=== PATIENT | female | born 1970 | race Caucasian/White ===

== ENCOUNTER → 2016-05-16 | Outpatient (CLI) | payer OTHER ==
--- NOTE | 2016-05-16 11:05 | REPMRS ---
Patient History The patient states she had a clinical breast exam in 05/30 Patient has history of leukemia cancer at age 8. No known family history of cancer. Digital Woman Screen Mammo: May 16, 2016 - Exam #: [id number] Bilateral CC and MLO view(s) were taken. Technologist: Katelyn Carlos, Technologist Prior study comparison: January 30, 2012, digital woman screen mammo performed at [facility] to [facility]. January 26, 2011, bilateral bilat screen digital mammo performed at [facility]. FINDINGS: There are scattered fibroglandular densities. There has been no change in the appearance of the mammogram from the prior studies. There is a mild amount of residual fibroglandular tissue which is fairly symmetric. There is no interval development of dominant mass, architectural distortion, or clustered microcalcification suggestive of malignancy. ASSESSMENT: BI-RADS/ACR category 1 mammogram. Negative. Recommendation Routine screening mammogram in 1 year (for women over age 40). This mammogram was interpreted with the aid of an FDA-approved computer-aided dectection system. Electronically Signed By: Kb Chung MD 05/16/16 2347
== END ==
LOC: M WHC 10:12
PROVIDERS: ATTEND Nurse Practitioner Women's Health
DX: Z12.31 Encounter for screening mammogram for malignant neoplasm of breast (principal)

== ENCOUNTER → 2016-08-08 | Outpatient (CLI) | payer OTHER ==
[2016-08-08 11:35] LABS: ALBUMIN 3.6 GM/DL (3.2-5.2); ALBUMIN/GLOBULIN RATIO 0.95 (1.00-1.93); BILIRUBIN,TOTAL 0.3 MG/DL (0.2-1.0); CALCIUM LEVEL 8.8 MG/DL (8.5-10.1); CREATININE FOR GFR 1.08 MG/DL (0.55-1.02); GLOMERULAR FILTRATION RATE 58.4 (>58); POTASSIUM SERUM 4.7 MEQ/L (3.5-5.1); TOTAL PROTEIN 7.4 GM/DL (6.4-8.2)
[2016-08-08 11:45] LABS: BASO % 0.7 % (0.0-1.0); EOS # 0.1 K/mm3 (0.0-0.50); EOS % 4.2 % (0.0-3.0); LARGE UNSTAINED CELL # 0.1 K/mm3 (0.0-0.4); LARGE UNSTAINED CELL % 1.9 % (0.0-4.0); LYMPH # 1.1 K/mm3 (1.5-4.5); LYMPH % 32.6 % (24.0-44.0); MEAN CORPUSCULAR HEMOGLOBIN 29.1 pg (27.0-33.0); MEAN CORPUSCULAR HGB CONC 33.3 g/dl (32.0-36.5); MEAN CORPUSCULAR VOLUME 87.3 fl (80.0-96.0); MONO # 0.2 K/mm3 (0.0-0.8); MONO % 5.3 % (0.0-5.0); NEUTROPHILS # 1.9 K/mm3 (1.8-7.7); NEUTROPHILS % 55.3 % (36.0-66.0); PLATELET COUNT, AUTOMATED 192 k/mm3 (150-450); RED CELL DISTRIBUTION WIDTH 13.5 % (11.5-14.5); WHITE BLOOD COUNT 3.4 K/mm3 (4.0-10.0)
== END ==
LOC: M WUC 09:38
PROVIDERS: ATTEND Physician Assistant Medical
DX: E03.9 Hypothyroidism, unspecified (principal); R30.0 Dysuria; E66.01 Morbid (severe) obesity due to excess calories; E55.9 Vitamin D deficiency, unspecified; N18.3 Chronic kidney disease, stage 3 (moderate); E78.4 Other hyperlipidemia

== ENCOUNTER → 2016-08-10 | Outpatient (CLI) | payer OTHER ==
--- NOTE | 2016-08-10 14:34 | REP ---
AP LATERAL LEFT KNEE, TWO VIEWS: HISTORY: Pain. There is no acute fracture or dislocation. There is narrowing of the joint spaces with associated osteophyte formation. Calcifications are present superior to the patella and adjacent to the femoral condyles. This represents ligamentous or tendon calcification. IMPRESSION: Degenerative change as described above. Signed by Merrick Bai MD 08/10/2016 02:40 P
== END ==
LOC: M ADAMS 13:48
PROVIDERS: ATTEND Physician Assistant Medical
DX: M25.562 Pain in left knee (principal)

== ENCOUNTER → 2016-10-11 | Outpatient (CLI) | payer OTHER ==
[2016-10-11 18:34] LABS: FREE T4 1.27 NG/DL (0.76-1.46)
== END ==
LOC: M WUC 13:09
PROVIDERS: ATTEND Physician Assistant Medical
DX: E03.9 Hypothyroidism, unspecified (principal)

== ENCOUNTER → 2017-03-21 | Outpatient (CLI) | payer OTHER ==
[2017-03-21 13:07] LABS: BASO % 0.9 % (0.0-1.0); EOS # 0.2 10^3/uL (0.0-0.50); EOS % 5.3 % (0.0-3.0); IMMATURE GRANULOCYTE % 0.2 % (0-0); LYMPH # 1.5 10^3/uL (1.5-4.5); LYMPH % 33.6 % (24.0-44.0); MEAN CORPUSCULAR HGB CONC 32.3 g/dl (32.0-36.5); MEAN CORPUSCULAR VOLUME 89.9 fl (80.0-96.0); MONO # 0.3 10^3/uL (0.0-0.8); MONO % 5.6 % (0.0-5.0); NEUTROPHILS # 2.5 10^3/uL (1.8-7.7); NEUTROPHILS % 54.4 % (36.0-66.0); PLATELET COUNT, AUTOMATED 225 10^3/uL (150-450); RED CELL DISTRIBUTION WIDTH 13.4 % (11.5-14.5); WHITE BLOOD COUNT 4.5 10^3/uL (4.0-10.0)
[2017-03-21 13:28] LABS: ALBUMIN 3.7 GM/DL (3.2-5.2); BILIRUBIN,TOTAL 0.3 MG/DL (0.2-1.0); CALCIUM LEVEL 9.1 MG/DL (8.5-10.1); CREATININE FOR GFR 1.13 MG/DL (0.55-1.02); GLOMERULAR FILTRATION RATE 55.2 (>58); POTASSIUM SERUM 4.5 MEQ/L (3.5-5.1); TOTAL PROTEIN 7.4 GM/DL (6.4-8.2)
== END ==
LOC: M WUC 09:19
PROVIDERS: ATTEND Physician Assistant Medical
DX: E03.9 Hypothyroidism, unspecified (principal)

== ENCOUNTER → 2017-09-21 | Outpatient (REF) | payer OTHER ==
[2017-09-21 18:51] LABS: BASO # 0.1 10^3/uL (0.0-0.2); BASO % 1.3 % (0.0-1.0); EOS # 0.2 10^3/uL (0.0-0.50); EOS % 4.9 % (0.0-3.0); HEMATOCRIT 41.3 % (36.0-47.0); HEMOGLOBIN 13.6 g/dl (12.0-15.5); IMMATURE GRANULOCYTE % 0.4 % (0-3.0); LYMPH # 1.3 10^3/uL (1.5-4.5); LYMPH % 28.4 % (24.0-44.0); MEAN CORPUSCULAR HEMOGLOBIN 29.1 pg (27.0-33.0); MEAN CORPUSCULAR HGB CONC 32.9 g/dl (32.0-36.5); MEAN CORPUSCULAR VOLUME 88.4 fl (80.0-96.0); MONO # 0.3 10^3/uL (0.0-0.8); MONO % 5.5 % (0.0-5.0); NEUTROPHILS # 2.7 10^3/uL (1.8-7.7); NEUTROPHILS % 59.5 % (36.0-66.0); PLATELET COUNT, AUTOMATED 217 10^3/uL (150-450); RED BLOOD COUNT 4.67 10^6/uL (4.00-5.40); RED CELL DISTRIBUTION WIDTH 13.4 % (11.5-14.5); WHITE BLOOD COUNT 4.5 10^3/uL (4.0-10.0)
[2017-09-21 19:03] LABS: ESTIMATED AVERAGE GLUCOSE 108 MG/DL (60-110); HEMOGLOBIN A1c 5.4 %
[2017-09-21 19:04] LABS: TOTAL 25(OH) VITAMIN D 25.2 NG/ML (30.0-100.0)
[2017-09-21 19:19] LABS: ALBUMIN 4.3 GM/DL (3.2-5.2); ALBUMIN/GLOBULIN RATIO 1.16 (1.00-1.93); ALKALINE PHOSPHATASE 127 U/L (45-117); ALT/SGPT 27 U/L (12-78); ANION GAP 8 MEQ/L (8-16); AST/SGOT 21 U/L (7-37); BILIRUBIN,TOTAL 0.3 MG/DL (0.2-1.0); BLOOD UREA NITROGEN 16 MG/DL (7-18); CARBON DIOXIDE LEVEL 27 MEQ/L (21-32); CHLORIDE LEVEL 105 MEQ/L (98-107); CHOLESTEROL LEVEL 259 MG/DL (<200); CHOLESTEROL RISK RATIO 6.815 (<5); FREE T4 1.01 NG/DL (0.76-1.46); GLOMERULAR FILTRATION RATE 56.9 (>58); GLUCOSE, FASTING 78 MG/DL (70-100); HDL CHOLESTEROL 38 MG/DL (>40); LDL CHOLESTEROL 177.6 MG/DL (<100); NON-HDL-C 221 MG/DL; POTASSIUM SERUM 4.5 MEQ/L (3.5-5.1); SODIUM LEVEL 140 MEQ/L (136-145); TRIGLYCERIDES LEVEL 217 MG/DL (<150)
== END ==
LOC: M SFHCADAM 14:16
DX: N18.3 Chronic kidney disease, stage 3 (moderate) (principal); F32.9 Major depressive disorder, single episode, unspecified; E55.9 Vitamin D deficiency, unspecified; I12.9 Hypertensive chronic kidney disease with stage 1 through stage 4 chronic kidney disease, or unspecified chronic kidney disease
CPT/HCPCS: 84443

== ENCOUNTER → 2018-03-11 | Outpatient (REF) | payer OTHER ==
[2018-03-11 12:48] LABS: BASO % 0.8 % (0.0-1.0); EOS # 0.2 10^3/uL (0.0-0.50); EOS % 4.1 % (0.0-3.0); HEMATOCRIT 41.4 % (36.0-47.0); HEMOGLOBIN 13.4 g/dl (12.0-15.5); IMMATURE GRANULOCYTE % 0.4 % (0-3.0); LYMPH # 1.7 10^3/uL (1.5-4.5); MEAN CORPUSCULAR HGB CONC 32.4 g/dl (32.0-36.5); MEAN CORPUSCULAR VOLUME 89.6 fl (80.0-96.0); MONO # 0.3 10^3/uL (0.0-0.8); MONO % 5.4 % (0.0-5.0); NEUTROPHILS # 2.6 10^3/uL (1.8-7.7); NEUTROPHILS % 54.3 % (36.0-66.0); PLATELET COUNT, AUTOMATED 220 10^3/uL (150-450); RED BLOOD COUNT 4.62 10^6/uL (4.00-5.40); RED CELL DISTRIBUTION WIDTH 13.2 % (11.5-14.5); WHITE BLOOD COUNT 4.8 10^3/uL (4.0-10.0)
[2018-03-11 13:17] LABS: ESTIMATED AVERAGE GLUCOSE 114 MG/DL (60-110); HEMOGLOBIN A1c 5.6 %
[2018-03-11 13:41] LABS: ALBUMIN 3.7 GM/DL (3.2-5.2); ALKALINE PHOSPHATASE 127 U/L (45-117); ALT/SGPT 24 U/L (12-78); ANION GAP 7 MEQ/L (8-16); AST/SGOT 14 U/L (7-37); BILIRUBIN,TOTAL 0.3 MG/DL (0.2-1.0); BLOOD UREA NITROGEN 14 MG/DL (7-18); CALCIUM LEVEL 9.1 MG/DL (8.5-10.1); CARBON DIOXIDE LEVEL 29 MEQ/L (21-32); CHLORIDE LEVEL 103 MEQ/L (98-107); CHOLESTEROL LEVEL 230 MG/DL (<200); CHOLESTEROL RISK RATIO 6.571 (<5); CREATININE FOR GFR 1.17 MG/DL (0.55-1.30); GLOMERULAR FILTRATION RATE 52.8 (>58); GLUCOSE, FASTING 79 MG/DL (70-100); HDL CHOLESTEROL 35 MG/DL (>40); LDL CHOLESTEROL 158 MG/DL (<100); NON-HDL-C 195 MG/DL; POTASSIUM SERUM 4.9 MEQ/L (3.5-5.1); SODIUM LEVEL 139 MEQ/L (136-145); TOTAL 25(OH) VITAMIN D 36.2 NG/ML (30.0-100.0); TOTAL PROTEIN 7.4 GM/DL (6.4-8.2); TRIGLYCERIDES LEVEL 184 MG/DL (<150)
== END ==
LOC: M SFHCADAM 10:57
DX: E55.9 Vitamin D deficiency, unspecified (principal); E03.9 Hypothyroidism, unspecified; E78.49 Other hyperlipidemia

== ENCOUNTER → 2018-04-29 | Outpatient (REF) | payer OTHER ==
[2018-04-29 19:39] LABS: FREE T4 1.14 NG/DL (0.76-1.46); THYROID STIMULATING HORMONE 1.99 uIU/ML (0.358-3.740)
== END ==
LOC: M SFHCADAM 12:53
PROVIDERS: ATTEND Physician Assistant Medical
DX: E03.9 Hypothyroidism, unspecified (principal); Z12.31 Encounter for screening mammogram for malignant neoplasm of breast

== ENCOUNTER → 2018-10-28 | Outpatient (CLI) | payer OTHER | LOC: M WUC 11:49 | PROVIDERS: ATTEND Physician Assistant Medical | DX: E03.9 Hypothyroidism, unspecified (principal) ==

== ENCOUNTER → 2019-02-13 | Outpatient (REF) | payer OTHER ==
[2019-02-13 12:43] LABS: BASO % 0.8 % (0.0-1.0); EOS # 0.3 10^3/uL (0.0-0.5); EOS % 5.9 % (0.0-3.0); HEMATOCRIT 42.5 % (36.0-47.0); HEMOGLOBIN 13.9 g/dl (12.0-15.5); LYMPH # 1.5 10^3/uL (1.5-5.0); LYMPH % 29.6 % (24.0-44.0); MEAN CORPUSCULAR HEMOGLOBIN 30.2 pg (27.0-33.0); MEAN CORPUSCULAR HGB CONC 32.7 g/dl (32.0-36.5); MEAN CORPUSCULAR VOLUME 92.2 fl (80.0-96.0); MONO # 0.3 10^3/uL (0.0-0.8); MONO % 6.3 % (0.0-5.0); NEUTROPHILS # 2.9 10^3/uL (1.5-8.5); PLATELET COUNT, AUTOMATED 278 10^3/uL (150-450); RED BLOOD COUNT 4.61 10^6/uL (4.00-5.40); WHITE BLOOD COUNT 5.1 10^3/uL (4.0-10.0)
[2019-02-13 13:14] LABS: ALBUMIN 3.8 GM/DL (3.2-5.2); BILIRUBIN,TOTAL 0.3 MG/DL (0.2-1.0); CALCIUM LEVEL 9.6 MG/DL (8.5-10.1); CHOLESTEROL RISK RATIO 6.633 (<5); CREATININE FOR GFR 1.3 MG/DL (0.55-1.30); FREE T4 1.3 NG/DL (0.76-1.46); GLOMERULAR FILTRATION RATE 46.5 (>58); POTASSIUM SERUM 5.2 MEQ/L (3.5-5.1); THYROID STIMULATING HORMONE 2.31 uIU/ML (0.358-3.740); TOTAL 25(OH) VITAMIN D 33.9 NG/ML (30.0-100.0); TOTAL PROTEIN 7.6 GM/DL (6.4-8.2)
[2019-02-13 13:15] LABS: HEMOGLOBIN A1c 5.4 %
[2019-02-13 13:47] LABS: MALB URINE SIEMENS 15.7 MG/L; MAU/CREAT RATIO 5.5 MCG/MG (0.0-30.0)
== END ==
LOC: M SFHCADAM 10:09
PROVIDERS: ATTEND Physician Assistant Medical
DX: E03.9 Hypothyroidism, unspecified (principal); E66.01 Morbid (severe) obesity due to excess calories; E78.49 Other hyperlipidemia; N18.3 Chronic kidney disease, stage 3 (moderate); E55.9 Vitamin D deficiency, unspecified

== ENCOUNTER → 2019-02-14 | Outpatient (REF) | payer OTHER | LOC: M SFHCWAGY 11:39 | PROVIDERS: ATTEND Nurse Practitioner Women's Health | DX: N83.201 Unspecified ovarian cyst, right side (principal) ==

== ENCOUNTER → 2019-03-12 | Outpatient (CLI) | payer OTHER ==
--- NOTE | 2019-03-12 12:52 | REP ---
ULTRASOUND RIGHT OCCIPITAL SOFT TISSUES: Real-time sonographic evaluation of right occipital soft tissues performed at the site of a palpable lump. There is a hypoechoic nodule which appears to demonstrate internal blood flow with duplex Doppler evaluation. The nodule therefore is felt to be solid. It measures 2.4 x 1.5 x 2.4 cm. No other adjacent nodule or cyst is seen. IMPRESSION: Right occipital soft tissue nodule is nonspecific and appears to be solid. It measures 2.4 x 1.5 x 2.4 cm. Recommend either further evaluation with MRI with and without contrast or ultrasound guided biopsy. Electronically Signed by Kb Chung MD 03/12/2019 01:13 P
== END ==
LOC: M RAD 11:11
PROVIDERS: ATTEND Physician Assistant Medical
DX: S00.83XA Contusion of other part of head, initial encounter (principal); X58.XXXA Exposure to other specified factors, initial encounter; Y92.89 Other specified places as the place of occurrence of the external cause

== ENCOUNTER → 2019-03-17 | Outpatient (CLI) | payer OTHER ==
--- NOTE | 2019-03-17 12:55 | REPMRS ---
Patient History The patient states she has not had a clinical breast exam in over a year. Patient has history of leukemia cancer at age 8 and had previous chemotherapy at age 8. No known family history of cancer. No Hormone Replacement Therapy Digital Woman Screen Mammo: March 17, 2019 - Exam #: [id number] Bilateral CC and MLO view(s) were taken. Technologist: Modesta Stein, Technologist Prior study comparison: May 16, 2016, digital woman screen mammo performed at [facility]. January 30, 2012, digital woman screen mammo performed at [facility]. January 26, 2011, bilateral bilat screen digital mammo performed at [facility]. FINDINGS: The breast tissue is almost entirely fat. There has been no change in the appearance of the mammogram from the prior studies. There is no interval development of dominant mass, architectural distortion, or grouped microcalcification typical of malignancy. 3-D tomosynthesis shows no additional findings. Assessment: BI-RADS/ACR category 1 mammogram. Negative Mammogram. Recommendation Routine screening mammogram of both breasts in 1 year (for women over age 40). This patient's Lifetime Breast Cancer RIsk is estimated at 9.9 %. This mammogram was interpreted with the aid of an FDA-approved computer-aided dectection system. Electronically Signed By: Korey Mcmahon MD 03/17/19 2729
== END ==
LOC: M WHC 10:13
PROVIDERS: ATTEND Physician Assistant Medical
DX: Z12.31 Encounter for screening mammogram for malignant neoplasm of breast (principal); Z85.6 Personal history of leukemia

== ENCOUNTER → 2019-03-18 | Outpatient (CLI) | payer OTHER ==
--- NOTE | 2019-03-20 16:22 | REP ---
Pelvic sonography: Repeat dictation. History: Cyst seen on CT in right lower quadrant. Question ovarian cyst. Comparison is made with CT abdomen pelvis December 26, 2015. Findings: The patient is status post hysterectomy. She is not certain whether the ovaries were removed. Neither ovary could be seen transabdominally or transvaginally. Visualized urinary bladder oquendo appear intact. There are two anechoic structures in the right lower quadrant laterally. These measure 7.7 x 5.1 x 6.0 cm and 3.5 x 2.8 x 2.7 cm. They are seen on transabdominal but not transvaginal images. The do not appear to be surrounded by ovarian tissue. Impression: There are two cystic structures in the right lower quadrant/right adnexa laterally as above which appear to be anechoic without mural thickening. 7.7 and 3.5 cm in greatest diameter respectively. A cystic ovarian lesion versus mesenteric inclusion cyst. Electronically Signed by Los Mcmahon MD 03/20/2019 05:15 P
== END ==
LOC: M RAD 12:22
PROVIDERS: ATTEND Nurse Practitioner Women's Health
DX: N83.201 Unspecified ovarian cyst, right side (principal)

== ENCOUNTER → 2019-03-26 | Outpatient (CLI) | payer OTHER ==
[~2019-03-26] MED LIST: ADV100INH INH; COLA100C5 PO; D 101000 PO; FLON1SPR; LEVO100T5 PO; LEVO88TA3 PO; LIDOCAINE 1% MDV 20ML VIAL As Ordered ONE; MONT10TA2 PO; SERT-141 PO
[2019-03-26 12:44] VITALS: BP 146/88
--- NOTE | 2019-03-26 17:27 | REP ---
ULTRASOUND-GUIDED RIGHT POSTERIOR NECK NODULE The procedure was performed under the direct supervision of Dr. Mcmahon. The patient has a history of a 2.4 x 1.5 x 2.4 cm solid nodule in the right posterior neck seen on a previous ultrasound dated 03/12/2019. The risks and benefits of the procedure were explained to the patient and informed consent was obtained. The right posterior neck nodule was localized using ultrasound guidance. The skin was prepped and draped in a sterile fashion. 1% lidocaine was used as a local anesthetic. Using ultrasound guidance eight fine-needle aspirations were obtained using 25 gauge needles. The patient tolerated the procedure well and there were no immediate complications. After the appropriate amount of monitored convalescence the patient was discharged from the department. Electronically Signed by LUIS ANGEL Jennings 03/26/2019 04:25 P Electronically Signed by Los Mcmahon MD 03/26/2019 05:19 P
== END ==
LOC: M IRPRO 10:47
PROVIDERS: ATTEND Radiology Diagnostic Radiology
DX: R22.1 Localized swelling, mass and lump, neck (principal)

== ENCOUNTER 2019-04-21 10:29 | Day surgery (SDC) | payer OTHER ==
[~2019-04-21] VITALS: Ht 157.5 cm; Wt 131.5 kg
[~2019-04-21 10:29] MED LIST changes: -LIDOCAINE 1% MDV 20ML VIAL As Ordered ONE
[2019-04-21] MEDS ORDERED: MELO15TA28 PO (10:56)
[2019-04-21] MEDS ORDERED: NS 1,000 ML IV ONE (11:00)
[2019-04-21] MEDS ORDERED: LIDOCAINE 2% INJ 100 MG/5 ML SDV (FOR ANES.) As Ordered ONE (11:13)
[2019-04-21] MEDS ORDERED: PROPOFOL 200 MG/20 ML VIAL As Ordered ONE (11:13)
--- NOTE | 2019-04-21 12:07 | ROOR ---
Patient Name: Lashay De León Procedure Date: 04/21/2019 11:01 AM Date of : 1970 Age: 49 Room: [facility] Gender: Female Note Status: Finalized Procedure: Upper GI endoscopy Indications: Familial Adenomatous Polyposis Providers: Aleksandr Zuluaga MD Referring MD: ELIANE Ellison Requesting Provider: Medicines: Monitored Anesthesia Care Complications: No immediate complications. Procedure: Pre-Anesthesia Assessment: - Prior to the procedure, a History and Physical was performed, and patient medications and allergies were reviewed. The patient is competent. The risks and benefits of the procedure and the sedation options and risks were discussed with the patient. All questions were answered and informed consent was obtained. Patient identification and proposed procedure were verified by the physician, the nurse and the anesthesiologist in the procedure room. Mental Status Examination: alert and oriented. Airway Examination: normal oropharyngeal airway and neck mobility. Respiratory Examination: clear to auscultation. CV Examination: normal. Prophylactic Antibiotics: The patient does not require prophylactic antibiotics. Prior Anticoagulants: The patient has taken no previous anticoagulant or antiplatelet agents. ASA Grade Assessment: III - A patient with severe systemic disease. After reviewing the risks and benefits, the patient was deemed in satisfactory condition to undergo the procedure. The anesthesia plan was to use monitored anesthesia care (MAC). Immediately prior to administration of medications, the patient was re-assessed for adequacy to receive sedatives. The heart rate, respiratory rate, oxygen saturations, blood pressure, adequacy of pulmonary ventilation, and response to care were monitored throughout the procedure. The physical status of the patient was re-assessed after the procedure. The Endoscope was introduced through the mouth, and advanced to the second part of duodenum. The upper GI endoscopy was accomplished without difficulty. The patient tolerated the procedure well. Findings: The examined esophagus was normal. The Z-line was regular and was found in the distal esophagus. Scattered mild inflammation characterized by erythema, friability and granularity was found in the gastric antrum. Biopsies were taken with a cold forceps for histology. Biopsies were taken with a cold forceps for Helicobacter pylori testing. Verification of patient identification for the specimen was done by the physician and nurse using the patient's name, date and medical record number. Estimated blood loss was minimal. A single 15 mm papule (nodule) with no bleeding and no stigmata of recent bleeding was found on the posterior wall of the gastric antrum. Biopsies were taken with a cold forceps for histology. The ampulla, duodenal bulb and second portion of the duodenum were normal. Impression: - Normal esophagus. - Z-line regular, in the distal esophagus. - Gastritis. Biopsied. - A single papule (nodule) found in the stomach. Biopsied. - Normal ampulla, duodenal bulb and second portion of the duodenum. Recommendation: - Patient has a contact number available for emergencies. The signs and symptoms of potential delayed complications were discussed with the patient. Return to normal activities tomorrow. Written discharge instructions were provided to the patient. - Resume previous diet. - Continue present medications. - Await pathology results. - Perform an upper endoscopic ultrasound (UEUS) to be scheduled based on the biopsy, labs and clinical symptoms. - Repeat upper endoscopy after studies are complete for surveillance based on pathology results. - Return to GI clinic in [facility] (address [address], [address], [place], [facility]) in 4 -- 6 weeks. Please call GI clinic @ [phone] for apppointment date and time. - Return to primary care physician. Aleksandr Zuluaga MD Aleksandr Zuluaga MD 04/21/2019 12:07:03 PM Electronically signed by Aleksandr Zuluaga MD Number of Addenda: 0 Note Initiated On: 04/21/2019 11:01 AM Estimated Blood Loss: Estimated blood loss was minimal.
--- NOTE | 2019-04-21 12:30 | ROOR ---
Patient Name: Lashay De León Procedure Date: 04/21/2019 11:02 AM Date of : 1970 Age: 49 Room: [facility] Gender: Female Note Status: Finalized Procedure: Colonoscopy Indications: Family history of familial adenomatous polyposis in a first-degree relative Providers: Aleksandr Zuluaga MD Referring MD: ELIANE Ellison Requesting Provider: Medicines: Monitored Anesthesia Care Complications: No immediate complications. Procedure: Pre-Anesthesia Assessment: - Prior to the procedure, a History and Physical was performed, and patient medications and allergies were reviewed. The patient is competent. The risks and benefits of the procedure and the sedation options and risks were discussed with the patient. All questions were answered and informed consent was obtained. Patient identification and proposed procedure were verified by the physician, the nurse and the anesthesiologist in the procedure room. Mental Status Examination: alert and oriented. Airway Examination: normal oropharyngeal airway and neck mobility. Respiratory Examination: clear to auscultation. CV Examination: normal. Prophylactic Antibiotics: The patient does not require prophylactic antibiotics. Prior Anticoagulants: The patient has taken no previous anticoagulant or antiplatelet agents. ASA Grade Assessment: III - A patient with severe systemic disease. After reviewing the risks and benefits, the patient was deemed in satisfactory condition to undergo the procedure. The anesthesia plan was to use monitored anesthesia care (MAC). Immediately prior to administration of medications, the patient was re-assessed for adequacy to receive sedatives. The heart rate, respiratory rate, oxygen saturations, blood pressure, adequacy of pulmonary ventilation, and response to care were monitored throughout the procedure. The physical status of the patient was re-assessed after the procedure. The Colonoscope was introduced through the anus and advanced to the terminal ileum, with identification of the appendiceal orifice and IC valve. The colonoscopy was performed without difficulty. The patient tolerated the procedure well. The quality of the bowel preparation was poor. The terminal ileum, ileocecal valve, appendiceal orifice, and rectum were photographed. Scope insertion time was 4 minutes. Scope withdrawal time was 8 minutes. The total duration of the procedure was 12 minutes. Findings: The perianal and digital rectal examinations were normal. The terminal ileum appeared normal. Three sessile polyps were found in the recto-sigmoid colon. The polyps were 6 to 8 mm in size. The polyp was removed with a cold biopsy forceps and The polyp was removed with a cold snare. Resection and retrieval were complete. Verification of patient identification for the specimen was done by the physician and nurse using the patient's name, date and medical record number. Estimated blood loss was minimal. Non-bleeding external and internal hemorrhoids were found during retroflexion. The hemorrhoids were medium-sized. Extensive amounts of semi-solid stool was found from rectum to cecum, interfering with visualization. Lavage of the area was performed using a large amount of sterile water, resulting in incomplete clearance with fair visualization. Impression: - Preparation of the colon was poor. - The examined portion of the ileum was normal. - Three 6 to 8 mm polyps at the recto-sigmoid colon, removed with a cold snare and removed with a cold biopsy forceps. Resected and retrieved. - Non-bleeding external and internal hemorrhoids. - Stool from rectum to cecum. Recommendation: - Patient has a contact number available for emergencies. The signs and symptoms of potential delayed complications were discussed with the patient. Return to normal activities tomorrow. Written discharge instructions were provided to the patient. - High fiber diet. - Continue present medications. - Use fiber, for example Citrucel, Fibercon, Konsyl or Metamucil. - Await pathology results. - Repeat colonoscopy in 1 year because the bowel preparation was poor and for surveillance based on pathology results. - Return to GI clinic in [facility] (address [address], [address], [place], [facility]) in 4 -- 6 weeks. Please call GI clinic @ [phone] for apppointment date and time. - Return to primary care physician. Aleksandr Zuluaga MD Aleksandr Zuluaga MD 04/21/2019 12:30:04 PM Electronically signed by Aleksandr Zuluaga MD Number of Addenda: 0 Note Initiated On: 04/21/2019 11:02 AM Estimated Blood Loss: Estimated blood loss was minimal.
[2019-04-21 12:47] VITALS: BP 136/80
== END 2019-04-21 12:49 | disposition home or self-care (01) ==
LOC: M OPP 10:29
PROVIDERS: ATTEND Internal Medicine Gastroenterology
DX: Z12.11 Encounter for screening for malignant neoplasm of colon (principal); Z83.71 Family history of colonic polyps; K64.8 Other hemorrhoids; K63.5 Polyp of colon; K29.70 Gastritis, unspecified, without bleeding; K31.89 Other diseases of stomach and duodenum; N18.4 Chronic kidney disease, stage 4 (severe); Z79.899 Other long term (current) drug therapy; Z88.0 Allergy status to penicillin

== ENCOUNTER → 2019-04-22 | Outpatient (CLI) | payer OTHER ==
[~2019-04-22] MED LIST changes: +MELO15TA28 PO
[2019-04-22 13:55] LABS: INR 1.08; PROTHROMBIN TIME 13.8 SECONDS (11.8-14.0)
[2019-04-22 13:56] LABS: PARTIAL THROMBOPLASTIN TIME 34.6 SECONDS (25.0-38.4)
== END ==
LOC: M PLALAB 11:21
PROVIDERS: ATTEND Physician Assistant Medical
DX: R22.1 Localized swelling, mass and lump, neck (principal)

== ENCOUNTER → 2019-04-22 | Outpatient (CLI) | payer OTHER ==
[2019-04-22 14:08] LABS: FOLLICLE STIMULATING HORMONE 5.5 mIU/mL; LUTEINIZING HORMONE 4.2 mIU/mL
== END ==
LOC: M PLALAB 10:47
PROVIDERS: ATTEND Nurse Practitioner Women's Health
DX: N83.209 Unspecified ovarian cyst, unspecified side (principal)

== ENCOUNTER → 2019-07-21 | Outpatient (CLI) | payer OTHER ==
[~2019-07-21] MED LIST changes: -MONT10TA2 PO; +MONT10TA4 PO
--- NOTE | 2019-07-22 08:36 | REP ---
Clinical: Follow up ovarian cyst. Technique: Transabdominal pelvic ultrasound followed by transvaginal examination for better evaluation of the endometrium and adnexa. Comparison: 03/18/2019. Findings: The patient is known to be status post hysterectomy. Left kidney is not visualized. Right kidney measures 2.6 x 2.0 x 1.9 cm and demonstrates normal vascularity without torsion. Simple cystic structures adjacent to the right ovary measuring 4.0 x 2.4 x 3.3 cm and 6.8 x 4.9 x 4.7 cm. Bladder appears normal and measures 9.7 x 5.3 x 8.4 cm. Impression: 1. Two simple appearing cysts in the right adnexa are similar to prior examination and otherwise nonspecific. These findings are relatively new and were not existent on CT dated 12/26/2015.
== END ==
LOC: M WHC 10:16
PROVIDERS: ATTEND Specialist
DX: N83.201 Unspecified ovarian cyst, right side (principal)

== ENCOUNTER → 2019-07-28 | Outpatient (REF) | payer OTHER ==
[2019-07-28 19:18] LABS: BASO # 0.1 10^3/uL (0.0-0.2); BASO % 0.8 % (0.0-1.0); EOS # 0.2 10^3/uL (0.0-0.5); HEMATOCRIT 41.1 % (36.0-47.0); HEMOGLOBIN 13.4 g/dl (12.0-15.5); LYMPH # 1.9 10^3/uL (1.5-5.0); LYMPH % 31.2 % (24.0-44.0); MEAN CORPUSCULAR HEMOGLOBIN 29.6 pg (27.0-33.0); MEAN CORPUSCULAR HGB CONC 32.6 g/dl (32.0-36.5); MEAN CORPUSCULAR VOLUME 90.7 fl (80.0-96.0); MONO # 0.2 10^3/uL (0.0-0.8); MONO % 3.8 % (0.0-5.0); NEUTROPHILS # 3.7 10^3/uL (1.5-8.5); NEUTROPHILS % 60.9 % (36.0-66.0); PLATELET COUNT, AUTOMATED 228 10^3/uL (150-450); RED BLOOD COUNT 4.53 10^6/uL (4.00-5.40)
[2019-07-28 19:33] LABS: ALBUMIN 3.9 GM/DL (3.2-5.2); BILIRUBIN,TOTAL 0.2 MG/DL (0.2-1.0); CALCIUM LEVEL 9.3 MG/DL (8.5-10.1); CREATININE FOR GFR 1.18 MG/DL (0.55-1.30); FREE T4 1.11 NG/DL (0.76-1.46); THYROID STIMULATING HORMONE 3.36 uIU/ML (0.358-3.740); TOTAL PROTEIN 7.5 GM/DL (6.4-8.2)
[2019-07-28 19:35] LABS: TOTAL 25(OH) VITAMIN D 31.6 NG/ML (30.0-100.0)
== END ==
LOC: M SFHCADAM 15:44
PROVIDERS: ATTEND Physician Assistant Medical
DX: E03.9 Hypothyroidism, unspecified (principal); E66.01 Morbid (severe) obesity due to excess calories; N18.3 Chronic kidney disease, stage 3 (moderate); F32.9 Major depressive disorder, single episode, unspecified; I10 Essential (primary) hypertension; E78.2 Mixed hyperlipidemia; E55.9 Vitamin D deficiency, unspecified

== ENCOUNTER → 2020-02-27 | Outpatient (CLI) | payer OTHER ==
[2020-02-27 16:47] LABS: BASO # 0.1 10^3/uL (0.0-0.2); BASO % 1.1 % (0.0-1.0); EOS # 0.2 10^3/uL (0.0-0.5); EOS % 4.9 % (0.0-3.0); HEMATOCRIT 42.6 % (36.0-47.0); HEMOGLOBIN 13.4 g/dl (12.0-15.5); LYMPH # 1.6 10^3/uL (1.5-5.0); LYMPH % 34.2 % (24.0-44.0); MEAN CORPUSCULAR HEMOGLOBIN 29.3 pg (27.0-33.0); MEAN CORPUSCULAR HGB CONC 31.5 g/dl (32.0-36.5); MONO # 0.3 10^3/uL (0.0-0.8); MONO % 6.6 % (0.0-5.0); NEUTROPHILS # 2.5 10^3/uL (1.5-8.5); PLATELET COUNT, AUTOMATED 211 10^3/uL (150-450); RED BLOOD COUNT 4.58 10^6/uL (4.00-5.40); WHITE BLOOD COUNT 4.7 10^3/uL (4.0-10.0)
[2020-02-27 17:08] LABS: ALBUMIN 3.8 GM/DL (3.2-5.2); BILIRUBIN,TOTAL 0.3 MG/DL (0.2-1.0); CALCIUM LEVEL 9.1 MG/DL (8.5-10.1); CHOLESTEROL RISK RATIO 6.842 (<5); CREATININE FOR GFR 1.21 MG/DL (0.55-1.30); FREE T4 0.99 NG/DL (0.76-1.46); GLOMERULAR FILTRATION RATE 50.3 (>58); POTASSIUM SERUM 4.9 MEQ/L (3.5-5.1); THYROID STIMULATING HORMONE 3.84 uIU/ML (0.358-3.740); TOTAL PROTEIN 7.4 GM/DL (6.4-8.2)
[2020-02-27 17:12] LABS: TOTAL 25(OH) VITAMIN D 29.3 NG/ML (30.0-100.0)
[2020-02-27 17:14] LABS: HEMOGLOBIN A1c 5.4 %
== END ==
LOC: M WUC 10:31
PROVIDERS: ATTEND Physician Assistant Medical
DX: E03.9 Hypothyroidism, unspecified (principal); E66.01 Morbid (severe) obesity due to excess calories; N18.30 Chronic kidney disease, stage 3 unspecified; F32.9 Major depressive disorder, single episode, unspecified; I12.9 Hypertensive chronic kidney disease with stage 1 through stage 4 chronic kidney disease, or unspecified chronic kidney disease; E78.2 Mixed hyperlipidemia; E55.9 Vitamin D deficiency, unspecified

== ENCOUNTER → 2020-03-08 | Outpatient (CLI) | payer OTHER ==
--- NOTE | 2020-03-10 06:40 | REP ---
INDICATION: PAIN IN BOTH KNEES COMPARISON: Left knee dated 08/10/2016 TECHNIQUE: AP, lateral, bilateral oblique and sunrise views right and left knee. FINDINGS: Left and right knee demonstrate advanced tricompartmental osteoarthritic degenerative changes including subchondral sclerosis to the tibial plateau, diffuse bulky osteophytosis, joint space narrowing, and considerable bilateral calcified loose bodies within the posterior joint spaces and adjacent to the bilateral patella and condyles. IMPRESSION: Bilateral advanced tricompartmental osteoarthritic degenerative changes. <Electronically signed by All Nevarez > 03/10/20 0637
== END ==
LOC: M ADAMS 14:11
PROVIDERS: ATTEND Physician Assistant Medical
DX: M17.0 Bilateral primary osteoarthritis of knee (principal)

== ENCOUNTER → 2020-05-20 | Outpatient (CLI) | payer OTHER ==
[~2020-05-20] MED LIST changes: +D31000TA2 PO; +EUTH100T PO; +EUTH88TA PO; -MONT10TA4 PO; +MONT5TAB2 PO; +SM F500O; +antibio
== END ==
LOC: M LABSMTC 12:46
PROVIDERS: ATTEND Anesthesiology
DX: Z01.812 Encounter for preprocedural laboratory examination (principal); Z20.822 Contact with and (suspected) exposure to COVID-19

== ENCOUNTER 2020-05-25 08:39 | Day surgery (SDC) | payer OTHER ==
[~2020-05-25] VITALS: Ht 152.4 cm; Wt 131.1 kg
[~2020-05-25 08:39] MED LIST changes: +NS 1,000 ML IV ONE
--- OUTSIDE RECORDS SUMMARY | 2020-05-25 08:44 | CCD ---
Author Author [facility] Organization [facility] Address Unknown Phone Unavailable Care Team Providers Care Grader Tender Name Role Phone Neli Zamora Unavailable PROBLEMS Type Condition ICD9-CM Code COW62-[id number] Code Onset Dates Condition S tatus SNOMED Code Notes Problem Mixed hyperlipidemia E78.2 Active 198580900 Problem Right ovarian cyst N83.201 Active 9761016350470 9108 Problem Hypothyroidism, unspecified E03.9 Active 4093 0008 Problem Chronic kidney disease, stage 3 (moderate) N18.3 Active 540745361 Problem Vasomotor rhinitis J30.0 Active 9158275 Problem Other chronic pain G89.29 Active 55742978 Problem Vitamin D deficiency, unspecified E55.9 Active 34820348 Problem Diverticulosis K57.90 Active 720714343 Problem Morbid (severe) obesity due to excess calories E66 .01 Active 831896693 Problem Essential (primary) hypertension I10 Active 48788940 Problem Major depressive disorder, single episode, unspecified F32.9 Active 22320522 Problem Asthma, mild intermittent J45.20 Active 135359 007 Problem H/O hysterectomy for benign disease Z90.710 Acti ve 266714578 ALLERGIES Allergen (clinical drug ingredient) Drug/Non Drug Allergy do cumented on EMR Reaction Allergy Type Onset Date Status Penicillin (For Allergies Use Only) Rash Drug Allerg y Active ENCOUNTERS from 1970 to 2020-03-11 Encounter Location Date Provider Diagnosis [facility] [place] [address] [place] [id number] Feb, Zofia Zamora IMMUNIZATIONS Vaccine Route Administration Date Status Influenza (18 yrs & older) Flublok IM Intramuscular Mar 28, 2019 Administered zz*PPD (DO NOT USE) Unknown Jun 05, 2011 Administered Pneumococcal Adult 0.5mL (Pneumovax 23) IM Intramuscular July 142016 Administered TDAP 0.5mL (Boostrix) IM Intramuscular Mar 17, 2014 Administe red Influenza (6mo & up) Fluzone IM Intramuscular Mar 19, 2018 Ad ministered Influenza (6mo & up) Fluzone IM Intramuscular Mar 29, 2017 Ad ministered Influenza (18 yrs & older) Flublok IM Intramuscular Mar 08, 2020 Administered Influenza (6mo & up) Fluzone IM Intramuscular Feb 03, 2014 Ad ministered Influenza (6mo & up) Fluzone IM Intramuscular Feb 16, 2012 Ad ministered Influenza (6mo & up) Fluzone IM Intramuscular Jun 05, 2011 Ad ministered SOCIAL HISTORY Tobacco Use: Social History Observation Description Date Details (start date - stop date) Never Smoker Sex Assigned At : Social History Observation Description Sex Assigned At Unknown Education: Question Answer Notes Level of Education: Finished High School Audit Question Answer Notes Total Score: 0 Interpretation: Alcohol Education Domestic Violence: Question Answer Notes Status: No history of abuse Sexual Hx: Question Answer Notes Had sex in the last 12 months (vaginal, oral, or anal)? Yes LMP: hysterectomy Have you ever had an STD? Yes with Men only Use protection? No Herpes? Yes Drug and Alcohol Question Answer Notes Total Score: 0 Interpretation: No problems reported Alcohol Screening: Question Answer Notes Did you have a drink containing alcohol in the past year? No Points 0 Interpretation Negative BMI Care Goal Follow-Up Question Answer Notes Above Normal BMI Follow-Up Giving encouragement to exercise, Weight monitoring Tobacco Use: Question Answer Notes Are you a: never smoker REASON FOR REFERRAL No Information VITAL SIGNS No information MEDICATIONS Medication SIG (Take, Route, Frequency, Duration) Start Date En d Date Status Synthroid 100 MCG 1 tablet Orally Once a day with 88 mcg daily for 30 Active Claritin 10 MG 1 tablet Orally Once a day for 30 day(s) Active Meloxicam 15 MG 1 tablet Orally Once a day for 30 Days Aug, Active Sertraline HCl 50 MG 1 tablet Orally Daily for 30 days Active Levothyroxine Sodium 88 MCG 1 tablet on an empty stoma ch in the morning Orally Once a day, with 100 mcg daily for 30 day(s) Aug, Active Advair Diskus 100/50 1 puff Inhalation Daily for 30 day(s) Active Flonase 50 MCG/ACT 1 spray in each nostril Nasally Once a d ay for 30 day(s) Nov, Active Colace 100 MG 1 capsule as needed Orally twice daily for 30 da y(s) Mar, Active Montelukast Sodium 10MG 1 tablet orally Daily for 30 days Active Vitamin D (Cholecalciferol) 1000UNIT 2 tablets Orally Once a day fo r 30 Active PROCEDURES No Information RESULTS No Results REASON FOR VISIT records MEDICAL (GENERAL) HISTORY Type Description Date Medical History asthma, CANDY 01/25 2.53, 94% Medical History allergies Medical History hypothyroidism Medical History depression/anxiety Medical History PTSD Medical History morbid obesity Medical History CKD3 Medical History 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 pap-cervical dysplasia Medical History non-compliance Medical History abn noc ox, 07/25 Medical History 01/25 nl hip xrays, mild DDD, B L5 spondy lolysis Medical History [facility] Surgical History appy 2000 Surgical History tubal ligation 2000 Surgical History 1992 Surgical History D & C 2004 Surgical History colposcopy Surgical History endometrial ablation() 2004 Surgical History Hysterectomy, sparing ovaries 2010 Surgical History carpal tunnel release @ ortho right 2011 Surgical History carpal tunnel release@ ortho left 2011 Surgical History herina repair Dr Cohen 06/[address] Zuluaga endoscopy of stomach 02/01 20 Hospitalization History childbirth Hospitalization History surgeries above Goals Section No Information Health Concerns No Information MEDICAL EQUIPMENT No Information MENTAL STATUS No Information FUNCTIONAL STATUS No Information ASSESSMENTS No Information PLAN OF TREATMENT No Information Insurance Providers Payer Name Payer Address Payer Phone Insured Name Patient Relati onship to Insured Coverage Start Date Coverage End Date [facility] [address] [facility] [id number] [phone] MINA BARNES self
--- OUTSIDE RECORDS SUMMARY | 2020-05-25 08:44 | CCD | Continuity of Care Document ---
Author Author [facility] Organization Unknown Address [address] [place] [address], [address] [place] [address] Phone [phone] Care Team Providers Care Airline Pilot Flight Instructor Name Role Phone Neli Zamora R.P.A. AUTM [phone] Problems Active Problems Provider Date Allergic asthma without status asthmaticus Aleksandr harrison M.D. Onset: 03/28/2019 Social History Type Date Description Comments Sex Unknown ETOH Use Denies alcohol use Tobacco Use Start: Unknown Denies Smoking Recreational Drug Use Denies Drug Use Allergies, Adverse Reactions, Alerts Active Allergies Reaction Severity Comments Date Penicillin Itching, RASH 03/28/2019 Medications Active Medications SIG Qnty Indications Ordering Provide r Date Miralax 17GM/Scoop Powder use as instructed by doctor for bowel prep 510gm Z12.11 Karan Butler MD 04/22/[address] take 4 tabs by mouth prior to procedure per instructions. 4tabs Z12.11 Karan Butler MD 04/22/2020 Colace 100mg Capsules take one capsule by mouth twice a day before a meal for constipation prn, avoid this medication if having diarrhea 60caps D49.0 Aleksandr Zuluaga M.D. 2019 Levothyroxine Sodium 88mcg Tablets 1tab po qd w/100mcg Unknown Meloxicam 15mg Tablets 1tab p o qd Unknown Montelukast Sodium 10mg Tablets 1tab po qd Unknown Vitamin D3 1000Unit Capsules 2 every day Unknown Advair Diskus 100-50mcg/Dose Aeros ol use as directed qd Unknown Sertraline HCL 50mg Tablets 1tab po qd Unknown Levothyroxine Sodium 100mcg Tablet s 1tab po qd w/88mcg Unknown Loratadine 10mg Capsules 1 by mouth every day Unknown Fluticasone Propionate 50mcg/Act Suspension 2 sprays to each nostril daily Unknown Immunizations Description No Information Available Vital Signs Date Vital Result Comment 04/22/2020 2:48pm BP Systolic 124 mmHg BP Diastolic 72 mmHg Height 61 inches 5'1" Weight 297.00 lb BMI (Body Mass Index) 56.1 kg/m2 [place] Body Weight 105 lb Weight 134.719 kg BSA (Body Surface Area) 2.23 m2 07/29/2019 9:52am BP Systolic 145 mmHg BP Diastolic 88 mmHg Heart Rate 103 /min Height 61 inches 5'1" Weight 290.00 lb BMI (Body Mass Index) 54.8 kg/m2 [place] Body Weight 105 lb Weight 131.544 kg BSA (Body Surface Area) 2.21 m2 Results Description No Information Available Procedures Description No Information Available Medical Devices Description No Information Available Encounters Description No Information Available Assessments Date Code Description Provider 04/22/2020 Z12.11 Encounter for screening for noe gnant neoplasm of colon IBIS Paz 04/22/2020 Z83.71 Family history of colonic polyps IBIS Paz 04/22/2020 Z86.010 Personal history of colonic poly ps IBIS Paz Plan of Treatment 04/22/2020 - IBIS Paz* Z12.11 Encounter for screening for malignant neoplasm of colon * Z83.71 Family history of colonic polyps * Z86.010 Personal history of colonic polyps * * New Medication:* Miralax 17 GM/Scoop * Dulcolax 5 mg * New Orders:* Colonoscopy, Ordered: 04/22/20 * Comments:* Will arrange for colonoscopy. Reviewed risks and benefits of the procedure, as well as other options, with the patient. Bowel prep procedure was discussed with patient, as well as risks and side effects associated with the bowel prep. Patient verbalized understanding of all of the above and is in agreement to proceed. Patient will seek medical attention for any acute changes. Will monitor. * Follow up:* As scheduled, sooner if needed. Functional Status Description No Information Available Mental Status Description No Information Available Referrals Description No Information Available
--- OUTSIDE RECORDS SUMMARY | 2020-05-25 08:44 | CCD ---
Author Author [place] [facility] [employer] Organization [facility] Address Unknown Phone Unavailable Care Team Providers Care Bowling Ball Finisher Name Role Phone Neli Zamora Unavailable PROBLEMS Type Condition ICD9-CM Code [id number] Code Onset Dates Condition S tatus SNOMED Code Notes Problem Mixed hyperlipidemia E78.2 Active 612894118 Problem Right ovarian cyst N83.201 Active [id number] 9108 Problem Hypothyroidism, unspecified E03.9 Active 4093 0008 Problem Chronic kidney disease, stage 3 (moderate) N18.3 Active 509518843 Problem Vasomotor rhinitis J30.0 Active 9065392 Problem Other chronic pain G89.29 Active 19880010 Problem Vitamin D deficiency, unspecified E55.9 Active 76835263 Problem Diverticulosis K57.90 Active 741587630 Problem Morbid (severe) obesity due to excess calories E66 .01 Active 034935931 Problem Essential (primary) hypertension I10 Active 54275500 Problem Major depressive disorder, single episode, unspecified F32.9 Active 95832093 Problem Asthma, mild intermittent J45.20 Active 981625 007 Problem H/O hysterectomy for benign disease Z90.710 Acti ve 184996211 ALLERGIES Allergen (clinical drug ingredient) Drug/Non Drug Allergy do cumented on EMR Reaction Allergy Type Onset Date Status Penicillin (For Allergies Use Only) Rash Drug Allerg y Active ENCOUNTERS from 1970 to 2020-03-12 Encounter Location Date Provider Diagnosis [facility] [address] [place] [address] Feb, Zofia Zamora Morbid (severe) obesity due to excess calories E66.01 ; Encounter for immunization Z23 ; Hypothyroidism, unspecified E03.9 ; Chronic kidney disease, stage 3 (moderate) N18.3 ; Major depressive disorder, single episode, unspecified F32.9 ; Vitamin D deficiency, unspecified E55.9 ; Essential (primary) hypertension I10 ; Asthma, mild intermittent J45.20 ; Mixed hyperlipidemia E78.2 ; Pain in right knee M25.561 ; Pain in left knee M25.562 and Other chronic pain G89.29 IMMUNIZATIONS Vaccine Route Administration Date Status Influenza [...] REASON FOR REFERRAL No Information VITAL SIGNS Weight 300.8 lbs Feb, Height 61 in Feb, BMI 56.83 kg/m2 Feb, Heart Rate 98 /min Feb, Respiratory Rate 18 /min Feb, Temperature 97.0 degrees Fahrenheit Feb, Oximetry 98 Feb, Blood pressure systolic 136 mm Hg Feb, Blood pressure diastolic 92 mm Hg Feb, MEDICATIONS Medication SIG (Take, Route, Frequency, Duration) Start Date En d Date Status Synthroid 100 MCG 1 tablet Orally Once a day with 88 mcg daily for 30 Active Claritin 10 MG 1 tablet Orally Once a day for 30 day(s) Active Meloxicam 15 MG 1 tablet Orally Once a day for 30 Days Aug, Active Montelukast Sodium 10MG 1 tablet orally Daily for 30 Active Sertraline HCl 50 MG 1 tablet Orally Daily for 30 Active Advair Diskus 100/50 1 puff Inhalation Daily for 30 day(s) Active Flonase 50 MCG/ACT 1 spray in each nostril Nasally Once a d ay for 30 day(s) Nov, Active Colace 100 MG 1 capsule as needed Orally twice daily for 30 da y(s) Mar, Active Levothyroxine Sodium 88 MCG 1 tablet on an empty stoma ch in the morning Orally Once a day, with 100 mcg daily for 30 day(s) Aug, Active Vitamin D (Cholecalciferol) 1000UNIT 2 tablets Orally Once a day fo r 30 Active PROCEDURES Procedure Date Ordered Result Body Site Immunization: Flublok Quadrivalent (18 years & older) 0.5mL IM (Influenza) 2020-03-08 N/A RESULTS No Results REASON FOR VISIT 6mo follow up MEDICAL (GENERAL) HISTORY Type Description Date Medical [...] No Information FUNCTIONAL STATUS No Information ASSESSMENTS Encounter Date Diagnosis Notes Feb, Morbid (severe) obesity due to excess ca lories (ICD-10 - E66.01) Feb, Other chronic pain (ICD-10 - G89.29) Feb, Pain in left knee (ICD-10 - M25.562) Feb, Hypothyroidism, unspecified (ICD-10 - E0 3.9) Feb, Encounter for immunization (ICD-10 - Z23 ) Feb, Asthma, mild intermittent (ICD-10 - J45. 20) Feb, Pain in right knee (ICD-10 - M25.561) Feb, Mixed hyperlipidemia (ICD-10 - E78.2) Feb, Major depressive disorder, s neetu episode, unspecified (ICD-10 - F32.9) Feb, Chronic kidney disease, stage 3 (moderat e) (ICD-10 - N18.3) Feb, Essential (primary) hypertension (ICD-10 - I10) Feb, Vitamin D deficiency, unspecified (ICD-1 0 - E55.9) PLAN OF TREATMENT Medication Medication Name Sig Start Date Stop Date Montelukast Sodium 10MG 1 tablet orally Daily for 30 Sertraline HCl 50 MG 1 tablet Orally Daily for 30 Treatment Notes Assessment Notes Clinical Notes Morbid (severe) obesity due to excess calories Pt was counselled on the importance of diet and exercise in maintaining a healthy weight and that patients weight currently poses a health risk. Pt verbalizes understanding Hypothyroidism, unspecified 03/02 TSH 3.84, recheck in 6 mon . Major depressive disorder, single episode, unspecified Stabl e. Pain in right knee Her biggest issue right now is her weight. It really is leading to many other issues for her. we have talked about diet extensively in the past as she has many reasons why exercise if difficult for her. XR today. Future Test Test Name Order Date TSH [id number] Next Appt Details 3 Months, XR today Reason: Insurance Providers Payer Name Payer Address Payer Phone Insured Name Patient Relati onship to Insured Coverage Start Date Coverage End Date DEANN HAIRSTON [facility] [address] [facility] [id number] MINA BARNES self
--- OUTSIDE RECORDS SUMMARY | 2020-05-25 08:44 | CCD ---
Author Author [facility] Organization [facility] Address Unknown Phone Unavailable Care Team Providers Care Burial Agent Name Role Phone Nestor GORDON MD Unavailable Unavailable Nestor GORDON MD Unavailable Unavailable Nestor GORDON MD Unavailable Unavailable Nestor GORDON MD Unavailable Unavailable Nestor GORDON MD Unavailable Unavailable Nestor GORDON MD Unavailable Unavailable Nestor GORDON MD Unavailable Unavailable Nestor GORDON MD Unavailable Unavailable Nestor GORDON MD Unavailable Unavailable Nestor GORDON MD Unavailable Unavailable Nestor GORDON MD Unavailable Unavailable Nestor GORDON MD Unavailable Unavailable Nestor GORDON MD Unavailable Unavailable Nestor GORDON MD Unavailable Unavailable Nestor GORDON MD Unavailable Unavailable Nestor GORDON MD Unavailable Unavailable Nestor GORDON MD Unavailable Unavailable Nestor GORDON MD Unavailable Unavailable Nestor GORDON MD Unavailable Unavailable Nestor GORDON MD Unavailable Unavailable Nestor GORDON MD Unavailable Unavailable Nestor GORDON MD Unavailable Unavailable Nestor GORDON MD Unavailable Unavailable Nestor GORDON MD Unavailable Unavailable Nestor GORDON MD Unavailable Unavailable Nestor GORDON MD Unavailable Unavailable Nestor GORDON MD Unavailable Unavailable Nestor GORDON MD Unavailable Unavailable Nestor GORDON MD Unavailable Unavailable Nestor GORDON MD Unavailable Unavailable Nestor GORDON MD Unavailable Unavailable Nestor GORDON MD Unavailable Unavailable Nestor GORDON MD Unavailable Unavailable Nestor GORDON MD Unavailable Unavailable Nestor GORDON MD Unavailable Unavailable Nestor GORDON MD Unavailable Unavailable Nestor GORDON MD Unavailable Unavailable Nestor GORDON MD Unavailable Unavailable Nestor GORDON MD Unavailable Unavailable Nestor GORDON MD Unavailable Unavailable Nestor GORDON MD Unavailable Unavailable Nestor GORDON MD Unavailable Unavailable Nestor GORDON MD Unavailable Unavailable Nestor GORDON MD Unavailable Unavailable Nestor GORDON MD Unavailable Unavailable Nestor GORDON MD Unavailable Unavailable Nestor GORDON MD Unavailable Unavailable Nestor GORDON MD Unavailable Unavailable Nestor GORDON MD Unavailable Unavailable Nestor GORDON MD Unavailable Unavailable Nestor GORDON MD Unavailable Unavailable Nestor GORDON MD Unavailable Unavailable Nestor GORDON MD Unavailable Unavailable Kirill JOSEPH MD Unavailable Unavailable Kirill JOSEPH MD Unavailable Unavailable Kirill JOSEPH MD Unavailable Unavailable Kirill JOSEPH MD Unavailable Unavailable Kirill JOSEPH MD Unavailable Unavailable Kirill JOSEPH MD Unavailable Unavailable Kirill JOSEPH MD Unavailable Unavailable Kirill JOSEPH MD Unavailable Unavailable Kirill JOSEPH MD Unavailable Unavailable Kirill JOSEPH MD Unavailable Unavailable Kirill JOSEPH MD Unavailable Unavailable Kirill JOSEPH MD Unavailable Unavailable Kirill JOSEPH MD Unavailable Unavailable Kirill JOSEPH MD Unavailable Unavailable Kirill JOSEPH MD Unavailable Unavailable Kirill JOSEPH MD Unavailable Unavailable Kirill JOSEPH MD Unavailable Unavailable Kirill JOSEPH MD Unavailable Unavailable Kirill JOSEPH MD Unavailable Unavailable Kirill JOSEPH MD Unavailable Unavailable Kirill JOSEPH MD Unavailable Unavailable Kirill JOSEPH MD Unavailable Unavailable Kirill JOSEPH MD Unavailable Unavailable Kirill JOSEPH MD Unavailable Unavailable Kirill JOSEPH MD Unavailable Unavailable Kirill JOSEPH MD Unavailable Unavailable Kirill JOSEPH MD Unavailable Unavailable Kirill JOSEPH MD Unavailable Unavailable Kirill JOSEPH MD Unavailable Unavailable Kirill JOSEPH MD Unavailable Unavailable Kirill JOSEPH MD Unavailable Unavailable Kirill JOSEPH MD Unavailable Unavailable Kirill JOSEPH MD Unavailable Unavailable Sun, Merrick DO Unavailable Unavailable Sun, Merrick DO Unavailable Unavailable Sun, Merrick DO Unavailable Unavailable Sun, Merrick DO Unavailable Unavailable Sun, Merrick DO Unavailable Unavailable Sun, Merrick DO Unavailable Unavailable Sun, Merrick DO Unavailable Unavailable Sun, Merrick DO Unavailable Unavailable Sun, Merrick DO Unavailable Unavailable Sun, Merrick DO Unavailable Unavailable Sun, Merrick DO Unavailable Unavailable Sun, Merrick DO Unavailable Unavailable Sun, Merrick DO Unavailable Unavailable Sun, Merrick DO Unavailable Unavailable Sun, Merrick DO Unavailable Unavailable Sun, Merrick DO Unavailable Unavailable Sun, Merrick DO Unavailable Unavailable Sun, Merrick DO Unavailable Unavailable Sun, Merrick DO Unavailable Unavailable Sun, Merrick DO Unavailable Unavailable Sun, Merrick DO Unavailable Unavailable Sun, Merrick DO Unavailable Unavailable Sun, Merrick DO Unavailable Unavailable Sun, Merrick DO Unavailable Unavailable Sun, Merrick DO Unavailable Unavailable Sun, Merrick DO Unavailable Unavailable Sun, Merrick DO Unavailable Unavailable Sun, Merrick DO Unavailable Unavailable Sun, Merrick DO Unavailable Unavailable Sun, Merrick DO Unavailable Unavailable Sun, Merrick DO Unavailable Unavailable Sun, Merrick DO Unavailable Unavailable Sun, Merrick DO Unavailable Unavailable Sun, Merrick DO Unavailable Unavailable Sun, Merrick DO Unavailable Unavailable Sun, Merrick DO Unavailable Unavailable Sun, Merrick DO Unavailable Unavailable Sun, Merrick DO Unavailable Unavailable Sun, Merrick DO Unavailable Unavailable Sun, Merrick DO Unavailable Unavailable Sun, Merrick DO Unavailable Unavailable Sun, Merrick DO Unavailable Unavailable Sun, Merrick DO Unavailable Unavailable Sun, Merrick DO Unavailable Unavailable Sun, Merrick DO Unavailable Unavailable Sun, Merrick DO Unavailable Unavailable Sun, Merrick DO Unavailable Unavailable Sun, Merrick DO Unavailable Unavailable Sun, Merrick DO Unavailable Unavailable Sun, Merrick DO Unavailable Unavailable Sun, Merrick DO Unavailable Unavailable Sun, Merrick DO Unavailable Unavailable Sun, Merrick DO Unavailable Unavailable Sun, Merrick DO Unavailable Unavailable Sun, Merrick DO Unavailable Unavailable Sun, Merrick DO Unavailable Unavailable Sun, Merrick DO Unavailable Unavailable Sun, Merrick DO Unavailable Unavailable Sun, Merrick DO Unavailable Unavailable Sun, Merrick DO Unavailable Unavailable Sun, Merrick DO Unavailable Unavailable Sun, Merrick DO Unavailable Unavailable BRYDEN, A LALI DO Unavailable Unavailable BRYDEN, A LALI DO Unavailable Unavailable BRYDEN, A LALI DO Unavailable Unavailable BRYDEN, A LALI DO Unavailable Unavailable BRYDEN, A LALI DO Unavailable Unavailable BRYDEN, A LALI DO Unavailable Unavailable BRYDEN, A LALI DO Unavailable Unavailable BRYDEN, A LALI DO Unavailable Unavailable BRYDEN, A LALI DO Unavailable Unavailable BRYDEN, A LALI DO Unavailable Unavailable BRYDEN, A LALI DO Unavailable Unavailable BRYDEN, A LALI DO Unavailable Unavailable BRYDEN, A LALI DO Unavailable Unavailable BRYDEN, A LALI DO Unavailable Unavailable BRYDEN, A LALI DO Unavailable Unavailable BRYDEN, A LALI DO Unavailable Unavailable BRYDEN, A LALI DO Unavailable Unavailable BRYDEN, A LALI DO Unavailable Unavailable BRYDEN, A LALI DO Unavailable Unavailable BRYDEN, A LALI DO Unavailable Unavailable BRYDEN, A LALI DO Unavailable Unavailable BRYDEN, A LALI DO Unavailable Unavailable BRYDEN, A LALI DO Unavailable Unavailable BRYDEN, A LALI DO Unavailable Unavailable BRYDEN, A LALI DO Unavailable Unavailable BRYDEN, A LALI DO Unavailable Unavailable BRYDEN, A LALI DO Unavailable Unavailable Re-disclosure Warning The records that you are about to access may contain information from federally-assisted alcohol or drug abuse programs. If such information is present, then the following federally mandated warning applies: This information has been disclosed to you from records protected by federal confidentiality rules (42 CFR part 2). The federal rules prohibit you from making any further disclosure of this information unless further disclosure is expressly permitted by the written consent of the person to whom it pertains or as otherwise permitted by 42 CFR part 2. A general authorization for the release of medical or other information is NOT sufficient for this purpose. The Federal rules restrict any use of the information to criminally investigate or prosecute any alcohol or drug abuse patient.The records that you are about to access may contain highly sensitive health information, the redisclosure of which is protected by Article 27-F of the [facility] Public Health law. If you continue you may have access to information: Regarding HIV / AIDS; Provided by facilities licensed or operated by the [facility] Office of Mental Health; or Provided by the [facility] Office for People With Developmental Disabilities. If such information is present, then the following [facility] mandated warning applies: This information has been disclosed to you from confidential records which are protected by state law. State law prohibits you from making any further disclosure of this information without the specific written consent of the person to whom it pertains, or as otherwise permitted by law. Any unauthorized further disclosure in violation of state law may result in a fine or senior living sentence or both. A general authorization for the release of medical or other information is NOT sufficient authorization for further disc losure. Allergies and Adverse Reactions Type Description Substance Reaction Status Data Source(s ) Propensity to adverse reactions PENICILLINS Penicillins Itching L ow Rash Low Active [facility] Low Low Drug allergy Penicillin (For Allergies Use Only) Drug allergy Rash Active eCW1 ([facility]) Encounters Encounter Providers Location Date Indications Data Source(s ) Outpatient [address] [facility] [address] 03/08/2020 12:00:00 AM EDT eCW1 ([facility]) Unknown [address] [facility] [address] 03/08/2020 12:00:00 AM EDT eCW1 ([facility]) Unknown [address] [facility] [address] [address] 02/17/2020 12:00:00 AM EDT eCW1 ([facility]) Outpatient Referrer: Merrick CONNELL.PAT 02/01/2020 10:31:31 AM EDT - 02/01/2020 10:31:34 AM EDT [facility] Outpatient Attender: Merrick Perezer: Merrick SELBY OB.PAT 01/29/2020 01:37:37 PM EDT - 01/29/2020 01:49:04 PM EDT [facility] Outpatient Attender: Merrick Almeida DOAdmitter: Merrick Almeida DO ES1-S J.JANELLE 01/02/2020 10:57:13 AM EDT - 02/06/2020 03:53:00 PM EDT [facility] Patient discharged. Outpatient Attender: SHAYY GORDON MD [id number] 12:00:00 AM EDT - 10/15/2019 12:00:00 AM EDT Frequency of micturition [facility] Frequency of micturition Outpatient Attender: Merrick Gentile: Merrick Almeida DO MOB-M OB 09/10/2019 12:00:00 AM EDT - 09/10/2019 10:48:31 AM EDT [facility] Alex [address] [facility] [address] 09/03/2019 12:00:00 AM EDT eCW1 ([facility]) [facility] [address] [place] [address] 08/06/2019 12:00:00 AM EDT eCW1 ([facility]) [facility] Alex [address] [facility] [address] 08/05/2019 12:00:00 AM EDT eCW1 ([facility]) Outpatient 07/29/2019 11:06:00 AM EDT [facility] Alex [address] [facility] [address] 07/28/2019 12:00:00 AM EDT eCW1 ([facility]) [facility] [address] [place] [address] 07/21/2019 12:00:00 AM EDT eCW1 ([facility]) Outpatient Attender: Merrick Almeida DOAdmitter: Merrick Almeida DO ES1-S J.EU 06/25/2019 03:49:51 PM EST [facility] Outpatient Attender: SHELLI Kumari/America/Benito matthews/Reindl 06/20/2019 01:10:00 PM EST [facility] ([facility]) [facility] [address] [place] [address] 06/17/2019 12:00:00 AM EST eCW1 ([facility]) Outpatient Attender: LALI Ruiz/America/Mahendra/Kiran ndl 05/01/2019 08:50:00 AM EST [facility] ([facility]) [facility] [address] [place] [address] 04/22/2019 12:00:00 AM EST eCW1 ([facility]) [facility] [address] [place] [address] 04/21/2019 12:00:00 AM EST eCW1 ([facility]) Outpatient Attender: SHELLI Kumari/America/Benito matthews/Luke 03/28/2019 07:30:00 AM EST [facility] ([facility] Johnson [address] [facility], [facility] [address] 03/28/2019 12:00:00 AM EST eCW1 ([facility]) Outpatient 03/26/2019 09:01:00 PM EST [facility] Immunizations Vaccine Date Status Description Data Source(s) influenza, recombinant, quadrIvalent,injectable, prese rvative free 03/08/2020 01:14:00 PM EDT completed eCW1 ([facility]) influenza, recombinant, quadrIvalent,injectable, prese rvative free 03/08/2020 01:14:00 PM EDT completed eCW1 ([facility]) influenza, recombinant, quadrIvalent,injectable, prese rvative free 03/28/2019 02:51:00 PM EST completed eCW1 ([facility]) influenza, recombinant, quadrIvalent,injectable, prese rvative free 03/28/2019 02:51:00 PM EST completed eCW1 ([facility]) influenza, recombinant, quadrIvalent,injectable, prese rvative free 03/28/2019 02:51:00 PM EST completed eCW1 ([facility]) influenza, recombinant, quadrIvalent,injectable, prese rvative free 03/28/2019 02:51:00 PM EST completed eCW1 ([facility]) Medications Medication Brand Name Start Date Product Form Dose Route Admi nistrative Instructions Pharmacy Instructions Status Indications Reaction Description Data Source(s) POLYETHYLENE GLYCOL 3350 142 MG/ML Oral Solution [Miralax] M iralax 04/22/2020 12:00:00 AM EST active M EDENT ([facility], ) Bisacodyl 5 MG Delayed Release Oral Tablet [Dulcolax] Dulcol ax 04/22/2020 12:00:00 AM EST ORAL active M EDENT ([facility], ) meloxicam 15 MG Oral Tablet Meloxicam 15 MG Meloxicam 15 MG 09/04/2019 12:00:00 AM EDT 1.0 {tablet} active Meloxicam 1 5 MG eCW1 ([facility]) meloxicam 15 MG Oral Tablet Meloxicam 15 MG Meloxicam 15 MG 09/04/2019 12:00:00 AM EDT 1.0 {tablet} active Meloxicam 1 5 MG eCW1 ([facility]) meloxicam 15 MG Oral Tablet Meloxicam 15 MG Meloxicam 15 MG 09/04/2019 12:00:00 AM EDT active 1 tablet eCW1 ([facility]) meloxicam 15 MG Oral Tablet Meloxicam 15 MG Meloxicam 15 MG 09/04/2019 12:00:00 AM EDT 1.0 {tablet} active Meloxicam 1 5 MG eCW1 ([facility]) Docusate Sodium 100 MG Oral Capsule [Colace] Colace 11/2019 12:00:00 AM EST ORAL active MEDENT ( [facility], ) Bisacodyl 5 MG Delayed Release Oral Tablet [Dulcolax] Dulcol ax 03/28/2019 12:00:00 AM EST completed MEDENT ([facility], ) POLYETHYLENE GLYCOL 3350 105 MG/ML / Pot assium Chloride 0.05906 MEQ/ML / Sodium Bicarbonate 0.017 MEQ/ML / Sodium Chloride 0.0479 MEQ/ML Oral Solution [GaviLyte-N] Gavilyte-N With Flavor Pack 03/28/2019 12:00:00 AM EST completed MEDENT ([facility], ) Acetaminophen 500 MG Oral Tablet acetaminophen (TYLENO L) 500 MG tablet acetaminophen (TYLENOL) 500 MG tablet 1500 mg Oral aborted Take 1,500 mg by mouth daily as needed for pain [facility] Insurance Providers Payer name Policy type / Coverage type Policy ID Covered libertarian ID Covered libertarian's relationship to coulter Policy Coulter Plan Information [facility] [id number] SP [id number] [facility] [id number] SP [id number] [place] [id number] SP [id number] [facility] O [id number] S [id number] [facility] [id number] Shirley [id number] [facility] [id number] P [id number] Shirley [id number] INSURANCE COVID-19 COVID Shirley C OVID INSURANCE COVID-19 [id number] MVP [id number] P EXCHANGE U [id number] Self [id number] [facility] O [id number] S [id number] [facility] [id number] SP [id number] MEDICAID [id number] SP [id number] [facility] [id number] SP [id number] [facility] [id number] SP [id number] [facility] [id number] SP [id number] ANSI-Commercial [id number] ANSI-Commercial [id number] ANSI-Commercial [id number] ANSI-Commercial [id number] ANSI-Commercial [id number] ANSI-Commercial [id number] ANSI-Commercial [id number] [facility] Other 0 Self 0 [facility] [id number] SP [id number] SELF PAY ONLY UNAVAILABLE SP UNAV AILABLE [facility] O [id number] S [id number] Ghi FHP-(DO Not Use) Medigap Part B Self MVP (pr) Commercial Self DEANN HAIRSTON PHY [id number] SP [id number] [employer] [place] [id number] [place] PPO 302/[id number] [employer] [place] 306/806 [id number] Problems, Conditions, and Diagnoses Code Display Name Description Problem Type Effective Dates Data Source(s) N83.201 [id number] Right ovarian cyst Problem 04/23/2019 12:00:00 AM EST eCW1 ([facility]) N83.201 [id number] Right ovarian cyst Problem 04/23/2019 12:00:00 AM EST eCW1 ([facility]) [id number] Allergic asthma without status asthmatic us Allergic asthma without status asthmaticus Problem 03/28/2019 12:00:00 AM EST [facility]ENT ([facility]) 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 Benign lipomatous neoplasm of intra-abdo Diagnosis 02/06/2020 01:18:00 PM EDT [facility] Z12.0 Encounter for screening for malignant ne oplasm of stomach Encounter for screening for malignant ne Diagnosis 02/06/2020 01:18:00 PM EDT [facility] J98.8 Other specified respiratory disorders Ot her specified respiratory disorders Diagnosis 02/01/2020 10:31:31 AM EDT [facility] U07.1 COVID-19 COVID-19 Diagnosis 02/01/2020 10:31:31 AM ED T [facility] R35.0 Frequency of micturition Frequency of micturition Diag nosis 10/14/2019 12:49:54 PM EDT [facility] Surgeries/Procedures Procedure Description Date Indications Data Source(s) Immunization: Flublok Quadrivalent (18 years & older) 0.5mL IM (Influenza) 03/08/2020 12:00:00 AM EDT eCW1 ([facility]) BLOOD COUNT COMPLETE AUTOMATED CBC Routine 0 1:45 PM EDT Encounter for screening for malignant neoplasm of stomach 01/29/2020 05:45:00 PM EDT Encounter for screening for malignant neoplasm of stom [facility] Encounter for screening for malignant ne oplasm of stomach BASIC METABOLIC PANEL CALCIUM TOTAL BASIC METABOLIC PANEL Routi ne 01/29/2020 1:45 PM EDT Encounter for screening for malignant neoplasm of stomach 01/29/2020 05:45:00 PM EDT Encounter for screening for malignant neoplasm of stom [facility] Encounter for screening for malignant ne oplasm of stomach URNLS DIP STICK/TABLET RGNT NON-AUTO W/O MICRSCP POCT URINE DIPSTICK MULTISTIX 10 SG Routine 10/14/2019 1:29 PM EDT Urinary frequency 10/14/2019 05:29:00 PM EDT Urinary frequency [facility] Urinary frequency BLOOD COUNT COMPLETE AUTOMATED CBC Routine 0 10:45 AM EDT Encounter for screening for malignant neoplasm of stomach 09/10/2019 02:45:00 PM EDT Encounter for screening for malignant neoplasm of stom [facility] Encounter for screening for malignant ne oplasm of stomach BASIC METABOLIC PANEL CALCIUM TOTAL BASIC METABOLIC PANEL Routi ne 09/10/2019 10:45 AM EDT Encounter for screening for malignant neoplasm of stomach 09/10/2019 02:45:00 PM EDT Encounter for screening for malignant neoplasm of stom [facility] Encounter for screening for malignant ne oplasm of stomach COMPLEX CYSTOMETROGRAM URETHRAL PRESS PROFILE 07/21/19 20 12:00:00 AM EDT eCW1 ([facility]) Endoscopy Upper GI Biopsy 04/21/2019 12:00:00 AM EST MEDENT ([facility], ) Colonoscopy W/ Poly 04/21/2019 12:00:00 AM EST MEDENT ([facility], ) RIV4 VACC RECOMBINANT DNA IM 03/28/2019 12:00:00 AM ES T eCW1 ([facility]) IMMUNIZATION ADMIN 03/28/2019 12:00:00 AM EST eCW1 ([facility]) Results ID Date Data Source [id number] 05/20/2020 12:00:00 PM EST [facility] Name Value Range Interpretation Code Description Data Sanna rce(s) Supporting Document(s) SARS coronavirus 2 RNA Not Detected [facility] [place] This lab was ordered by [facility] and reported by [facility]. ID Date Data Source [id number] 02/06/2020 02:49:35 PM EDT [facility] INFORMATIONPatient MRN Name Date of Age Gend*PT [id number] Lashay De León 1970 50 years F OPPT Location Ad[facility] Date[facility]Time [facility] [place] [facility] 1318 --- Merrick Almeida DO([id number]) EPI ID CSN Admitting Provider [id number] Merrick Almeida DO([id number])Endoscopic Gastroduodenoscopy with Endoscopic Ultrasound Procedure NotePatient: Lashay Baez StraderSurgery Date: February 06, 2020Surgeon(s):URSZULA Panre-Operative Diagnosis: Gastric submucosal tumorPost-Op Diagnosis Codes: * 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 * Fatty liverRecommendations: No further surveillance is indicatedProcedure(s):ULTRASOUND, UPPER GASTROINTESTINAL (GI) TRACT, ENDOSCOPICSedation: Monitored Anesthesia Care (MAC) (see anesthesia report).ASA Class: IVOther Equipment Type Equipment Setting Setting Low Setting High Applied By Endoscope ENDOSCOPE [id number] Merrick Almeida DO ERCP Scope (ENDO) Radial Endoscope Ultrasound (ENDO) ENDOSCOPE RADIAL ULTRASOUND [id number] DO [place]aly[place] Linear Endoscope Ultrasound (ENDO) Endoscopic Ultrasound MachineConsent:After obtaining history and performing the physical examination, the procedure,indications, potential complications, including but not limited to bleeding,perforation, infection, adverse medication reaction, and alternatives wereexplained to the patient. Patient appeared to understand the benefits and risksof this procedure. Informed consent was obtained from the patient afterproviding opportunity for questions.Procedure Details:The gastroscope was inserted into the mouth and advanced under directvisualization to second portion of the duodenum. A careful inspection was madeas the gastroscope was withdrawn, including a retroflexed view of the proximalstomach. Subsequently, an echo endoscope was inserted into the mouth andadvanced to the second portion of the duodenum. After completion of theexamination, the patient was transferred to the recovery room.* No implants in log *Endoscopic Findings:Antrum: One s mall 5-6 mm submucosal lesion. The overlying mucosa appearedintact.Duodenum 2nd Portion: Normal ampullaEUS Findings:Mediastinum: Normal; No pleural effusion, pericardial effusion, posteriormediastinum mass, and mediastinum adenopathyCeliac Region: No adenopathyPancreas: Appeared normal and homogenous. The main PD is measured 1.6 mm in thebody of pancreas. No peripancreatic adenopathy or fluid collectionStomach: The submucosal tumor in the antrum is located within the submucosallayer and appeared homogenous and hyperechoic. No perigastric/gastrohepaticligament adenopathy. No perigastric fluid collection or ascites.Hepatobiliary: CBD is measured 3.1 mm; No stonesAmpulla: NormalLiver: Diffusely hyperechoicSpecimens:* No specimens in log *Complications: None; patient tolerated the procedure well.Estimated Blood Loss: noneMerrick Almeida DO02/06/20202:45 PM Name Value Range Interpretation Code Description Data Sanna rce(s) Supporting Document(s) ID Date Data Source [id number] 02/06/2020 02:14:21 PM EDT [facility] NT INFORMATIONPatient MRN Name Date of Age Gend*PT [id number] Lashay De León 1970 50 years F OPPT Location Admission Date/Time Visit ID Attending ProviderRadha Tyler 02/06/20 1318 --- Merrick Almeida DO([id number]) EPI ID [facility] Admitting Provider [id number] Merrick Almeida DO([id number])HISTORY AND PHYSICALVictoria H StraderMRN: [id number]: Gastric submucosal tumorPLAN:1. Proceed with EUS evaluationHPI: Patient presents today for an EUS evaluation of a gastric submucosal tumor.Evidently, patient has family history of Victoria syndrome in brother and sister.Her recent outpatient endoscopy found a gastric submucosal tumor. Her primarygastroenterologist requested an EUS evaluation not only the gastric submucosaltumor but also the pancreas.Allergies:PenicillinsMedications:Medications Prior to AdmissionMedication Sig Dispense Refill Last Dose acetaminophen (TYLENOL) 650 MG CR tablet Take 1,300 mg by mouth daily02/04/2020 albuterol (PROVENTIL HFA;VENTOLIN HFA) 108 (90 Base) MCG/ACT inhaler Inhale 2puffs every 4 (four) hours as needed for wheezing Unknown at Unknown time cholecalciferol (VITAMIN D3) 25 MCG (1000 UT) capsule Take 2,000 Units bymouth daily Past Week at Unknown time diphenhydrAMINE (BENADRYL) 25 MG tablet Take 25 mg by mouth nightly as neededfor sleep Unknown at Unknown time docusate sodium (COLACE) 100 MG capsule Take 100 mg by mouth daily as neededfor constipation Unknown at Unknown time fluticasone (FLONASE) 50 MCG/ACT nasal spray 1 spray into each nostril dailyUnknown at Unknown time fluticasone-salmeterol (ADVAIR) 100-50 MCG/DOSE DISKUS Inhale 1 puff daily02/05/2020 at Unknown time fluticasone-salmeterol (ADVAIR) 100-50 MCG/DOSE DISKUS Inhale 1 puff daily asneeded (for wheezing) levothyroxine (SYNTHROID, LEVOTHROID) 100 MCG tablet Take 100 mcg by mouthdaily with 88 mcg dose (total: 188 mcg) 02/05/2020 at Unknown time levothyroxine (SYNTHROID, LEVOTHROID) 88 MCG tablet Take 88 mcg by mouth dailywith 100 mcg dose (total: 188 mcg) 02/05/2020 at Unknown time loratadine (CLARITIN) 10 MG tablet Take 10 mg by mouth daily 02/05/2020 atUnknown time meloxicam (MOBIC) 15 MG tablet Take 15 mg by mouth daily Past Week atUnknown time montelukast (SINGULAIR) 10 MG tablet Take 10 mg by mouth daily 02/05/2020 atUnknown time sertraline (ZOLOFT) 50 MG tablet Take 50 mg by mouth daily 02/05/2020 atUnknown timePast Medical History:Past Medical History:Diagnosis Date Anxiety Asthma CKD (chronic kidney disease) Dx by PCP Depression Encounter for screening for malignant neoplasm of stomach 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 history of Hypothyroidism Leukemia age 8 Morbid obesityPast Surgical History:Past Surgical History:Procedure Laterality Date APPENDECTOMY CARPAL TUNNEL RELEASE Bilateral SECTION 1992 COLONOSCOPY INCISIONAL HERNIA REPAIR PANENDOSCOPY PARTIAL HYSTERECTOMYFamily History:Family HistoryProblem Relation Age of Onset COPD Mother Cancer FatherSocial History:Social HistoryTobacco Use Smoking status: Never Smoker Smokeless tobacco: Never UsedSubstance Use Topics Alcohol use: Yes Comment: occasionally Drug use: NeverReview of Systems:Const: Denies constitutional symptoms.Eyes: Denies eye symptoms.ENMT: Denies ear symptoms. Denies nasal symptoms. Denies mouth or throatsymptoms.CV: Denies cardiovascular symptoms.Resp: Denies respiratory symptoms.GI: Denies gastrointestinal symptoms.: Denies ge nitourinary symptomsMusculo: Denies musculoskeletal symptoms.Skin: Denies skin, hair and nail symptoms.Breast: Denies breast problems.Neuro: Denies neurologic symptoms.Psych: Denies psychiatric symptoms.Endocrine: Denies endocrine symptoms.Joel/Lymph: Denies hematologic symptoms.Physical Exam:Temp: [98.4 F] 98.4 FHeart Rate: [72] 72Resp: [18] 18BP: (134)/(84) 134/84Const: Appeared healthy and well developed. No signs of apparent distresspresent.Head/Face: Atraumatic, normocephalic on inspection.Eyes: Conjunctivae clear. Sclerae clear and anicteric.Resp: Auscultate good airflow. Lungs are clear bilaterally.CV: Rate is regular by auscultation. Rhythm is regular. S1 is normal. S2 isnormal. No heart murmur appreciated. Pedal pulses: 2+ and equal bilaterally.Extremities: No clubbing, cyanosis or edema.Abdomen: Abdomen is soft, nontender, and nondistended without guarding, rigidityor rebound tenderness. No pulsatile masses present.Signature: Catrachito Pan: February 06, 2020Time: 2:11 PM Name Value Range Interpretation Code Description Data Sanna rce(s) Supporting Document(s) ID Date Data Source [id number] 02/01/2020 10:30:00 AM EDT [facility] Name Value Range Interpretation Code Description Data Sanna rce(s) Supporting Document(s) SARS coronavirus 2 RNA [facility] This lab was ordered by [facility] and reported by [employer]. ID Date Data Source [id number] 02/02/2020 08:07:40 AM EDT [facility] Name Value Range Interpretation Code Description Data Sanna rce(s) Supporting Document(s) SARS-COV-2 MAIE [facility] Not DetectedReference range: Not Detecte d This nucleic acid amplification test was developed and its performance characteristics determined by [employer]. Nucleic acid amplification tests include PCR and TMA. This test has not been FDA cleared or approved. This test has been authorized by FDA under an Emergency Use Authorization (EUA). This test is only authorized for the duration of time the declaration that circumstances exist justifying the authorization of the emergency use of in vitro diagnostic tests for detection of SARS-CoV-2 virus and/or diagnosis of COVID-19 infection under section 564(b)(1) of the Act, 21 U.S.C. 360bbb-3(b) (1), unless the authorization is terminated or revoked sooner. When diagnostic testing is negative, the possibility of a false negative result should be considered in the context of a patient's recent exposures and the presence of clinical signs and symptoms consistent with COVID- 19. An individual without symptoms of COVID- 19 and who is not shedding SARS -CoV-2 virus would expect to have a negative (not detected) result in this assay. Performed At: [facility] [id number] Adam Marcial MD Ph:[phone] ID Date Data Source [id number] 01/29/2020 07:35:25 PM EDT [facility] Name Value Range Interpretation Code Description Data Sanna rce(s) Supporting Document(s) SODIUM 138 mmol/L (136-145) [facility] POTASSIUM 4.6 mmol/L (3.6-5.2) [facility] CHLORIDE 103 mmol/L (100-108) [facility] CO2 31 mmol/L (22-31) [facility] ANION GAP 4 mmol/L (7-16) L [facility] UREA NITROGEN 14 mg/dL (7-24) [facility] CREATININE 1.18 mg/dL (0.60-1.00) H [facility] BUN/CREAT RATIO 11.9 RATIO (10.0-20.0) [facility] GLUCOSE 102 mg/dL (70-99) H [facility] CALCIUM 9.5 mg/dL (8.4-10.2) [facility] GFR 49 ml/min/1.73m2 (>59) L [facility] GFR ( AMER) 59 ml/min/1.73m2 (>59) L [facility] GFR INTERPRETATION [facility] --NORMAL KIDNEY FUNCTION OR MILD DISEASE - GFR >OR= 60CHRONIC KIDNEY DISEASE - GFR 15 - 59RENAL FAILURE - GFR <15 Est. GFR calculation based on the MDRDstudy equation, which assumes a steadystate for creatinine. Est. GFR should notbe used for medication dosing. ID Date Data Source [id number] 01/29/2020 07:17:07 PM EDT [facility] Name Value Range Interpretation Code Description Data Sanna e(s) Supporting Document(s) WBC 5.2 10*3/uL (4.1-11.0) [facility] RBC 4.49 10*6/uL (4.00-5.40) [facility] HGB 13.4 g/dL (12.0-16.0) [facility] HCT 40.2 % (36.0-47.0) [facility] MCV 89.5 fL (80.0-95.0) [facility] MCH 29.8 pg (27.0-32.0) [facility] MCHC 33.3 g/dL (32.0-36.0) [facility] RDW 14.4 % (10.5-14.5) [facility] PLT 213 10*3/uL (150-450) [facility] MPV 9.4 fL (7.1-10.7) [facility] ID Date Data Source [id number] 01/29/2020 01:39:00 PM EDT [facility] INFORMATIONPatient MRN Name Date of Age Gend*PT [id number] Lashay De León 1970 50 years F OPPT Location Admission Date/Time Visit ID Attending Provider --- --- --- Merrick Almeida DO([id number]) EPI ID CSN Admitting Provider [id number] ---OUTPATIENT / OBSERVATIONAL SURGICAL OR INVASIVE PROCEDUREName: Lashay De León : 1970 Sex: female Care Provider: Lala Tenorio Physician: Dr. Almeida.HISTORY OF PRESENT ILLNESS: 50 years old female . She has a strong familyhistory of Victoria syndrome. She underwent CT of the abdomen revealing abnormallining of the stomach. 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 Authorizing Provideracetaminophen (TYLENOL) 650 MG CR tablet Take 1,300 mg by mouth dailyHistorical Provider, MDalbuterol (PROVENTIL HFA;VENTOLIN HFA) 108 (90 Base) MCG/ACT inhaler Inhale 2puffs every 4 (four) hours as needed for wheezing Historical Provider, Sereneholecalciferol (VITAMIN D3) 25 MCG (1000 UT) capsule Take 2,000 Units by mouthdaily Historical Provider, JamaliphenhydrAMINE (BENADRYL) 25 MG tablet Take 25 mg by mouth nightly as neededfor sleep Historical Provider, MDdocusate sodium (COLACE) 100 MG capsule Take 100 mg by mouth daily as needed forconstipation Historical Provider, MDfluticasone (FLONASE) 50 MCG/ACT nasal spray 1 spray into each nostril dailyHistorical Provider, MDfluticasone-salmeterol (ADVAIR) 100-50 MCG/DOSE DISKUS Inhale 1 puff dailyHistorical Provider, MDfluticasone-salmeterol (ADVAIR) 100-50 MCG/DOSE DISKUS Inhale 1 puff daily asneeded (for wheezing) Historical Provider, MDlevothyroxine (SYNTHROID, LEVOTHROID) 100 MCG tablet Take 100 mcg by mouth dailywith 88 mcg dose (total: 188 mcg) Historical Provider, MDlevothyroxine (SYNTHROID, LEVOTHROID) 88 MCG tablet Take 88 mcg by mouth dailywith 100 mcg dose (total: 188 mcg) Historical Provider, MDloratadine (CLARITIN) 10 MG tablet Take 10 mg by mouth daily HistoricalProvider, MDmeloxicam (MOBIC) 15 MG tablet Take 15 mg by mouth daily Historical Provider,MDmontelukast (SINGULAIR) 10 MG tablet Take 10 mg by mouth daily HistoricalProvider, MDsertraline (ZOLOFT) 50 MG tablet Take 50 mg by mouth daily HistoricalProvider, MDacetaminophen (TYLENOL) 500 MG tablet Take 1,500 mg by mouth daily as needed forpain 01/29/20 Historical Provider, Chanel HistoryTobacco Use Smoking status: Never Smoker Smokeless tobacco: Never UsedSubstance Use Topics Alcohol use: Yes Comment: occasionally Drug use: NeverHistory reviewed. No pertinent family history.REVIEW OF SYSTEMS:Respiratory: Denies any shortness of breath, cough, yellow sputum production orwheezing.Cardiovascular: Denies any chest pain, pressure or tightness. Denies anyparoxysmal nocturnal dyspnea or orthopnea.GI: Denies nausea, vomiting, diarrhea, constipation or melena.Neurologic: Denies any numbness, tingling, tremors or syncope.Vascular: Denies any edema. Denies claudication.PHYSICAL EXAM:GENERAL: She is a 50 years old, pleasant greatly obese female, in no acutedistress at time of examination. Vitals on arrival to the office are Ht 1.549 m(5' 1") | Wt (!) 136.1 kg (300 lb) | BMI 56.68 kg/m Body mass index is 56.68kg/m ..Skin is pink, warm, and dry.NECK: She has a grade 4 airway. Neck is supple, midline, without cervicaladenopathy. No thyromegaly. No carotid bruits.MENTAL / NEUROLOGICAL STATUS: [id number]: Clear to auscultation. No wheezes, rhonchi or crackles.HEART: Rate rhythm regular. S1, S2. No murmur, rub or gallop.ABDOMEN: Bowel sounds positive times four. Soft, non tender. No reboundtenderness. No hepatosplenomegaly. Negative CVAT.EXTREMITIES: Pulses are symmetrical. Trace edema.Anesthesia complications: None knownCSHA Frailty Scale :: 3/10 Managing Well (medical problems are well controlled,but are not regularly active beyond routine walking).Stop Bang Questionnaire - Total Score:STOP-Bang Total Score: 3ASSESSMENT: Primary Diagnosis/Indication: Encounter for screening for malignantneoplasm of stomach.PLAN: Procedure: Endoscopic upper GI ultras ound.01/29/2020 1:34 PMKathleen Yonas Avalos document or parts of this document, were dictated using Orgoo software. A reasonable attempt at proofreading has beenmade to minimize errors. Please call with any questions or corrections.* Name Value Range Interpretation Code Description Data Sanna mcguire(s) Supporting Document(s) ID Date Data Source [id number] 10/14/2019 02:09:13 PM [facility] Name Value Range Interpretation Code Description Data Sanna rce(s) Supporting Document(s) Progress Note [facility] LGTHKn3iQuVOQpAj23/ROSpuWLPoc7LsHWahQAy2QHjyZJGlK2JaIUO8lD7oFVT7MFuRYlPxIdTeMdVa lbm [file] EwE3CaeqPaQdXlutNZZ8NvIhAJ2FQi4XXoA3SNU8qOHoOn1ETcQ2DUESLgXtLB8UHAj= ID Date Data Source [id number] 10/14/2019 02:09:08 PM EDT [facility] Name Value Range Interpretation Code Description Data Sanna rce(s) Supporting Document(s) Progress Note [facility] DVRTZe0zKlGVVdBv47/AVWgpNKEfs0ZzXWpvKLd9HFncJUCeB8EpASV2wS1gYVU9RMoGKeLwPvPxMhVl lbm [file] ICAgICAgICAgICAgICAgICAgICAgICAgICAgICAgICAgICAgICAgICAgICAgICAgICAgICAgICAgICAg WPEzPISiSFExRGFtLENpDV8ZUXPwXMNiSXXhYTHmOV AgICAgICAgICAgICAgICAgICAgICAgICAgICAgICAgICAgICAgICAgICAgICAgICAgICAgICAgICAgIC RvNWKlEAJeLFMuRSBuOSUmVJMaMOCfYOPxGB8GALDcSAUmFBLnLCPiBACeFXIaAUJmFYVvBKPtMOSqCT AgICAgICAgICAgICAgICAgICAgICAgICAgICAgICAg QTHcKHAwRXHoOQTaOICmQRTeWZGeDJGuEHViHXZgRYBdMAWrRL5UTXLqYSCbSWIiNDZcAITcRUYpAGHi ICAgICAgICAgICAgICAgICAgICAgICAgICAgICAgICAgICAgICAgICAgICAgICAgICAgICAgICAgICAg SJYzRLJxASUvWDKyFVCrEYDlBW0UHAOnMRVnPGNsHJ AgICAgICAgICAgICAgICAgICAgICAgICAgICAgICAgICAgICAgICAgICAgICAgICAgICAgICAgICAgIC HgJKFpLCQgGGDpVHVgMCEqACQnIZDzPTSaXPFvXF0ZLDZyXRUvZLFdKPMbOTGeOYJeUTWtFHCxSEAoEI AgICAgICAgICAgICAgICAgICAgICAgICAgICAgICAg KSBaRWVrOQCyJHLePBVmQCCyFNNnUQJfWVCuUYYxOWKiRFRdVDRlFA0AOSJdQLSiCCIpDBScZMMjYCQd ICAgICAgICAgICAgICAgICAgICAgICAgICAgICAgICAgICAgICAgICAgICAgICAgICAgICAgICAgICAg DAFmEVMcYMBhLHRbRCMbSPNpIKSyKT7ARZHwCFGfLR AgICAgICAgICAgICAgICAgICAgICAgICAgICAgICAgICAgICAgICAgICAgICAgICAgICAgICAgICAgIC DbTSEyGUKnYHYfUMYpHAZsEHYbIJGmRILcYDOaZLKvIR2HBFElSETrTVLxVGZqOSMiUJIkOGBmBJMlQY AgICAgICAgICAgICAgICAgICAgICAgICAgICAgICAg PWCtHERgAFOsQNIwUFPfMZKkVHJnJSOgICCqJCGyHWBiLUUlGXOeAZNtOR3SAPVnYWNxYXUhWVWlYJLm ICAgICAgICAgICAgICAgICAgICAgICAgICAgICAgICAgICAgICAgICAgICAgICAgICAgICAgICAgICAg BPVqIZZaECGrGRRkOTZzAVMfTJGmMJLwTV9MPB66oM Udq2G3ILViEZ7arjj/Ke6XEGfbdgVgdDDhBQ6INoKxFJ5mzh4NAuNxVD6jsc3JTArRXiCaJ6N9xDLzZM EvFREBIwFjQ73uDXntXq63NQeeWVOvVmSaPMh8Cu0ZInBzP7vuAPNpPlO0FDRrByM4WCRjYmL9EBPoTl TmEQSkSUXsUW1PLJWtX961exCgUF3YGv1HBvVsKU4f av6DYnbxQWYcMjxMIyn2DAgnJO2UoSSnkASeWKZaRAONAyQdQ1cyx0ZnZjnsLBYVLYguKR2Ba3QsiYQr DQo+Eu3UPL4tr1VfAMnpPROxQO8zga5JHNjYWtHgT9LlkXutXIIlu4qsWLPsJM5dbZWvLCB2LUViWMbu RQsuQEWTpaHpPM7ANXL0PPGdFc4cSAIsFXOmDwDnAZ DDMK4GXHLbOHZdqEGkNQQqSHHWPX4DCIgaWKJ3JHAlopSukDYvRXcpPT7FXHXbihNdOrlfFZXTDRh+Pg 6XZS0az8SqNXkxIDIzBP7ikw2BAQdTOjOsY6P8tWAbF6X1DXkoLe2FBIDuPYUnWhNwNRZXUPplKX3OSR 8gieI0QR2RlCDuGEVbIOQviQWzFBs3Q01wyJNnVInq UB5DQWX+Bunny+Gy4SNWVdVRPtYXBmUzWvFCXUFpYiU1OwL6PHn1ZqK4YbGY20vJqqvzNaXKtdWJ7QTW1q DFToJBBFFB6SsKDewS8scaGsSGGgBDJHKkXaZ35kgVPaFHScRMZ7LTBfXt3IRUGqI8MsfrAuhHnfgcUp PXAnSYMWFX2XCZyteeJcpSEhmCtjGJ09kKhiHK4ALf 7TRhOmCU2alf2JyBGhGm4NYWDrBS7PRLKiTYKePYCvSLI6YRVxDdMyRNjzVPVyVOYcJSP8JJBrIUAkUZ 8TIjRwLTBaUzupPcfyVUVxPIPkne6PSYIpGFZyZAy0QzFuJFAmKFLlAEyrAXPiKOIaHBH8RUMhXWNiMO 2VSiLhTSImJPSmRRKjDRKoKJZwex2VAKAxARUrQrB6 NNCoJEKzKQIsPDanJYXfZWQ7DErrDTJxBPUeIO5LXwJxVUMeKHN5DgxqLMPuKFOeox5QLTQcRBVxQYd6 XpXmKXIkRFHmTGzhHKXyIST1UHfdTGXjSOJcSL5WCbOzTUCmENC7UwTxIQWdJBWddy4GYCGtCGLkHPTd SOOeIIJcMZVwAXdyEBMfIMHuLSy4WFWdWJPpMY3YLj MiLBMpTSCdIFAtOWQnONZsot5OXHQrIHSxAoA3UUTsIZPfHYQkNEhcNVIkZIQcDgN5JHQwIAJuAE0BBc WkVFGiRNZ3OpxwVNQxDRLwge7IOQKhDTWfJxatNtTsPKCeKSBxIZxdSHEgFQQ6OcS8PUUkBAUcJV2TXd XwXITwFzObXUXxKTMbRSSxpr5XSKSvDTPgRDAbQVHt XEKlFDCwCRaaHHJfIBH0VbNdBFNiOHPnXJ7MBuRsPHAaAhX4IQlxUHUbFZGofb1LIVOaUGOyFzc5BXKu IKDwTKLyKEfvSDWfWHF5JWG1FJZlEAThCM5OCgQjGYYjBwbiZWUdDWCuRZAdqf3HJAWeEJRnOlKxWvEs HOIuPFQsOMppHEMhFNC1LXwiNGNgBWMqUZ7VNeKsUF RySvhiVaWsPBRtBLOawd7FVHZxULWdAREtYZPyRTIxBOSkVIo8plJajYZhJBm7PA4TJ8NlurPjCdBUYg 5Lt604CEFrPWCiZb8AO7zlPy3hASIrAKSMQe8PKUn3DXKoBPDoCoX2KVVzMHDpKaCcWDAbOOMhBAV9AV EwNGE+FVgxRnJgUMYvWuv1MBUzWRYjLkTjFLWnCRPf WYF1OMP0PB8eEPEYDc8+BAnqeXHdhLofZBSEOtY9REUhMKnvZPWCOi0G ID Date Data Source [id number] 10/14/2019 02:09:03 PM EDT [facility] Name Value Range Interpretation Code Description Data Sanna rce(s) Supporting Document(s) Progress Note [facility] ALYXEi7yPfJNJvAj48/KBYzjKUGto1TuCSzoEWe1VQbkZEGdS5XkZCY8oY7mIXU6XRfNJxBwUpIxEeBc lbm [file] inpatient care manager [file] ZkZDBjYTNiYjRlMjVmNjEyNzMwYWEyZmFjOTliPiBd GA0BBb6HTcR8ISR1eFFhQi9PHcA3GlpWSyVqZI9PUGq= ID Date Data Source [id number] 10/15/2019 12:54:05 PM EDT [facility] Service Cmnt XXX-Imp : NoneMicroorganism XXX Cult : No growth 1 day Name Value Range Interpretation Code Description Data Sanna rce(s) Supporting Document(s) ID Date Data Source [id number] [facility]2019 [facility] Name Value Range Interpretation Code Description Data Sanna rce(s) Supporting Document(s) Color of Urine [facility] Clarity of Urine [facility] Specific gravity of Urine by Refractometry automated 1.014 1.003 -1.030 [facility] pH of Urine by Automated test strip 6.0 5.0-8.0 [facility] Protein [Mass/volume] in Urine by Automated test strip Neg [facility] Glucose [Mass/volume] in Urine by Automated test strip Neg [facility] Ketones [Mass/volume] in Urine by Automated test strip Neg [facility] Bilirubin.total [Presence] in Urine by Automated test strip Negative [facility] Hemoglobin [Presence] in Urine by Automated test strip Neg [facility] Leukocyte esterase [Presence] in Urine by Automated test strip Negative [facility] Nitrite [Presence] in Urine by Automated test strip Negati [facility] Leukocytes [#/area] in Urine sediment by Automated count 0 /HPF 0 -5 [facility] Erythrocytes [#/area] in Urine sediment by Automated count 0 /HPF 0-3 [facility] ID Date Data Source [id number] 09/10/2019 11:05:46 AM EDT [facility] NT INFORMATIONPatient MRN Name Date of Age Gend*PT [id number] Lashay De León 1970 49 years F OPPT Location Admission Date/Time Visit ID Attending Provider --- --- --- Merrick Almeida DO([id number]) EPI ID CSN Admitting Provider [id number] ---OUTPATIENT / OBSERVATIONAL SURGICAL OR INVASIVE PROCEDUREName: Lashay De León : 1970 Sex: female Care Provider: Lala Tenorio Physician: Dr. AlmeidaHISTORY OF PRESENT ILLNESS: Ms De León is a 49 years old white female withhistory of leukemia as a child, hypothyroidism, depression, anxiety,diverticulitis, morbid obesity and family history of Victoria syndrome. Patientrecently underwent CT of the abdomen due to strong family history of Gardnersyndrome. Unfortunately CT scan indica jovanni abnormal lining of the stomach.Patient denies any abdominal pain, nausea vomiting, change in bowels, weightloss, night sweats or shortness of breath. 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 Authorizing Provideracetaminophen (TYLENOL) 500 MG tablet Take 1,500 mg by mouth daily as needed forpain Historical Provider, MDcholecalciferol (VITAMIN D3) 25 MCG (1000 UT) capsule Take 2,000 Units by mouthdaily Historical Provider, MDdocusate sodium (COLACE) 100 MG capsule Take 100 mg by mouth daily as needed forconstipation Historical Provider, fluticasone (FLONASE) 50 MCG/ACT nasal spray 1 spray into each nostril dailyHistorical Provider, fluticasone-salmeterol (ADVAIR) 100-50 MCG/DOSE DISKUS Inhale 1 puff dailyHistorical Provider, levothyroxine (SYNTHROID, LEVOTHROID) 100 MCG tablet Take 100 mcg by mouth dailywith 88 mcg dose (total: 188 mcg) Historical Provider, MDlevothyroxine (SYNTHROID, LEVOTHROID) 88 MCG tablet Take 88 mcg by mouth dailywith 100 mcg dose (total: 188 mcg) Historical Provider, MDloratadine (CLARITIN) 10 MG tablet Take 10 mg by mouth daily HistoricalProvider, MDmeloxicam (MOBIC) 15 MG tablet Take 15 mg by mouth daily Historical Provider,MDmontelukast (SINGULAIR) 10 MG tablet Take 10 mg by mouth nightly HistoricalProvider, MDsertraline (ZOLOFT) 50 MG tablet Take 50 mg by mouth daily HistoricalProvider, MDSocial HistoryTobacco Use Smoking status: Never Smoker Smokeless tobacco: Never UsedSubstance Use Topics Alcohol use: Yes Comment: occasionally Drug use: NeverHistory reviewed. No pertinent family history.REVIEW OF SYSTEMS:Respiratory: Denies any shortness of breath, cough, yellow sputum production orwheezing.Cardiovascular: Denies any chest pain, pressure or tightness. Denies anyparoxysmal nocturnal dyspnea or orthopnea.GI: Denies nausea, vomiting, diarrhea, constipation or melena.Neurologic: Denies any numbness, tingling, tremors or syncope.Vascular: Denies any edema. Denies claudication.PHYSICAL EXAM:GENERAL: She is a 49 years old, pleasant white female, in no acute distress attime of examination. Vitals on arrival to the office are BP 124/77 (BP Location:Left upper arm, Patient Position: Sitting) | Pulse 72 | Ht 1.549 m (5' 1") |Wt (!) 131.9 kg (290 lb 11.2 oz) | SpO2 96% | BMI 54.93 kg/m Body mass indexis 54.93 kg/m ..Skin is pink, warm, and dry.NECK: She has a grade IV airway. Neck is supple, midline, without cervicaladenopathy. No thyromegaly. No carotid bruits.MENTAL / NEUROLOGICAL STATUS: [id number]: Clear to auscultation. No wheezes, rhonchi or crackles.HEART: Rate rhythm regular. S1, S2. No murmur, rub or gallop.ABDOMEN:Morbidly obese. Bowel sounds positive times four. Soft, non tender. Norebound tenderness. No hepatosplenomegaly. Negative CVAT.EXTREMITIES: Pulses are symmetrical. NO edema.[facility]est[facility] complications: [facility] :: 4/10 Vulnerable (while not dependent on others for dailyhelp, often symptoms limit activities. A common complaint is being "slowed up",and /or being tired during the day).Stop Bang Questionnaire - Total Score:STOP-Bang Total Score: 4ASSESSMENT: Primary Diagnosis/Indication: Encounter for screening for malignantneoplasm of stomach.PLAN: Procedure: Ms De León is a 49-year-old female with a strong familyhistory of Victoria syndrome. She is scheduled to undergo ULTRASOUND, UPPERGASTROINTESTINAL (GI) TRACT, ENDOSCOPIC on 11:05 Yonas Campos document or parts of this document, were dictated using [employer] speaking software. A reasonable attempt at proofreading has beenmade to minimize errors. Please call with any questions or corrections.* Name Value Range Interpretation Code Description Data Sanna rce(s) Supporting Document(s) ID Date Data Source [id number] 09/10/2019 03:40:44 PM EDT [facility] [facility] Name Value Range Interpretation Code Description Data Sanna rce(s) Supporting Document(s) SODIUM 139 mmol/L (136-145) [facility] POTASSIUM 4.5 mmol/L (3.6-5.2) [facility] CHLORIDE 101 mmol/L (100-108) [facility] CO2 33 mmol/L (22-31) H [facility] ANION GAP 5 mmol/L (7-16) [facility] UREA NITROGEN 18 mg/dL (7-24) [facility] CREATININE 1.05 mg/dL (0.60-1.00) [facility] BUN/CREAT RATIO 17.1 RATIO (10.0-20.0) [facility] GLUCOSE 84 mg/dL (70-99) [facility] CALCIUM 9.5 mg/dL (8.4-10.2) [facility] GFR 56 ml/min/1.73m2 (>59) L [facility] GFR ( AMER) >60 ml/min/1.73m2 (>59) [facility] GFR INTERPRETATION [facility] --NORMAL KIDNEY FUNCTION OR MILD DISEASE - GFR >OR= 60CHRONIC KIDNEY DISEASE - GFR 15 - 59RENAL FAILURE - GFR <15 Est. GFR calculation based on the MDRDstudy equation, which assumes a steadystate for creatinine. Est. GFR should notbe used for medication dosing. ID Date Data Source [id number] 09/10/2019 03:36:49 PM EDT [facility] Name Value Range Interpretation Code Description Data Sanna rce(s) Supporting Document(s) WBC 4.8 10*3/uL (4.1-11.0) [facility] [place] RBC 4.61 10*6/uL (4.00-5.40) [facility] HGB 13.7 g/dL (12.0-16.0) [facility] HCT 40.1 % (36.0-47.0) [facility] MCV 86.9 fL (80.0-95.0) [facility] MCH 29.7 pg (27.0-32.0) [facility] MCHC 34.1 g/dL (32.0-36.0) [facility] RDW 13.7 % (10.5-14.5) [facility] PLT 212 10*3/uL (150-450) [facility] MPV 9.3 fL (7.1-10.7) [facility] ID Date Data Source TSH 07/28/2019 12:00:00 AM EDT eCW1 ([facility]) Name Value Range Interpretation Code Description Data Sanna rce(s) Supporting Document(s) 3.360 0.358-3.740 THYROID STIMULATING HORM ONE eCW1 ([facility]) ID Date Data Source VITAMIN D 25-HYDROXY 07/28/2019 12:00:00 AM EDT eCW1 ([facility]) Name Value Range Interpretation Code Description Data Sanna rce(s) Supporting Document(s) 31.6 30.0-100.0 TOTAL 25(OH) VITAMIN D eC W1 ([facility]) ID Date Data Source FREE T4 07/28/2019 12:00:00 AM EDT eCW1 ([facility]) Name Value Range Interpretation Code Description Data Sanna rce(s) Supporting Document(s) 1.11 0.76-1.46 FREE T4 eCW1 ([facility]) ID Date Data Source Comprehensive Metabolic Profile (CMP) 07/28/2019 12:00:00 AM EDT eCW1 ([facility]) Name Value Range Interpretation Code Description Data Sanna rce(s) Supporting Document(s) 145 70-100 GLUCOSE, FASTING eCW1 ([facility]) 17 7-18 BLOOD UREA NITROGEN eCW1 ([facility]) 1.18 0.55-1.30 CREATININE FOR GFR eCW1 ([facility]) 52.0 >58 GLOMERULAR FILTRATION RATE eCW 1 ([facility]) 138 136-145 SODIUM LEVEL eCW1 ([facility]) 4.0 3.5-5.1 POTASSIUM SERUM eCW1 ([facility]) 105 98-107 CHLORIDE LEVEL eCW1 ([facility]) 27 21-32 CARBON DIOXIDE LEVEL eCW1 ([facility]) 14 7-37 AST/SGOT eCW1 ([facility]) 9.3 8.5-10.1 CALCIUM LEVEL eCW1 ([facility]) 115 45-117 ALKALINE PHOSPHATASE eCW1 ([facility]) 25 12-78 ALT/SGPT eCW1 ([facility]) 0.2 0.2-1.0 BILIRUBIN,TOTAL eCW1 ([facility]) 7.5 6.4-8.2 TOTAL PROTEIN eCW1 ([facility]) 3.9 3.2-5.2 ALBUMIN eCW1 ([facility]) 1.08 1.00-1.93 ALBUMIN/GLOBULIN RATIO eCW1 ([facility]) ID Date Data Source CBC with Differential 07/28/2019 12:00:00 AM EDT eCW1 ([facility]) Name Value Range Interpretation Code Description Data Sanna rce(s) Supporting Document(s) 6.0 4.0-10.0 WHITE BLOOD COUNT eCW1 ([facility]) 41.1 36.0-47.0 HEMATOCRIT eCW1 ([facility]) 13.4 12.0-15.5 HEMOGLOBIN eCW1 ([facility]) 4.53 4.00-5.40 RED BLOOD COUNT eCW1 ([facility]) 32.6 32.0-36.5 MEAN CORPUSCULAR HGB CONC eCW1 ([facility]) 90.7 80.0-96.0 MEAN CORPUSCULAR VOLUME e CW1 ([facility]) 29.6 27.0-33.0 MEAN CORPUSCULAR HEMOGLOB IN eCW1 ([facility]) 228 150-450 PLATELET COUNT, AUTOMATED eCW1 ([facility]) 60.9 36.0-66.0 NEUTROPHILS % eCW1 ([facility]) 13.4 11.5-14.5 RED CELL DISTRIBUTION WID TH eCW1 ([facility]) 31.2 24.0-44.0 LYMPH % eCW1 ([facility]) 3.0 0.0-3.0 EOS % eCW1 ([facility]) 0.8 0.0-1.0 BASO % eCW1 ([facility]) 3.8 0.0-5.0 MONO % eCW1 ([facility]) 3.7 1.5-8.5 NEUTROPHILS # eCW1 ([facility]) 1.9 1.5-5.0 LYMPH # eCW1 ([facility]) 0.2 0.0-0.5 EOS # eCW1 ([facility]) 0.2 0.0-0.8 MONO # eCW1 ([facility]) 0.1 0.0-0.2 BASO # eCW1 ([facility]) ID Date Data Source [id number] 04/21/2019 11:48:00 AM MASTER CASEY ([facility], ) Name Value Range Interpretation Code Description Data Sanna rce(s) Supporting Document(s) Surgical pathology study (SEE NOTE) CARMELA ([facility]) FINAL DIAGNOSIS A - Gastric biopsy: Gastric mucosa, without significant acute or chronic inflammation. B - Gastric nodule, biopsy: Nodular portion of gastric mucosa with reactive changes. Scattered eosinophils are noted in the stroma. C - Sigmoid colon, polyp, polypectomy: Hyperplastic polyp fragments. Some of the fragments show granulation tissue and surface erosion, suggestive of inflammatory pseudopolyp, correlation with clinical findings is recommended. 04/23/2019 - 1106 CLINICAL DIAGNOSIS Familial adenomatous polyposis 04/22/2019 - 0649 GROSS DIAGNOSIS A - Received in formalin labeled "gastric biopsy R/O H. pylori" is a 0.3 x 0.2 x 0.2 cm. portion of mucosa. All in one. B - Received in formalin labeled "gastric nodule" is a 0.3 x 0.2 x 0.2 cm. portion of mucosa. All in one. C - Received in formalin labeled "sigmoid polyp" is a 0.5 x 0.5 x 0.5 cm. aggregate of mucosal fragments, admixed with fecal matter. All in a histo bag. [facility] 04/22/2019 - 0647 Signed Richardson Gardner MD 04/23/2019 1124 Procedure Social History Code Duration Value Status Description Data Source(s ) Smoking 03/08/2020 12:00:00 AM EDT Never Smoker completed Never S moker eCW1 ([facility]) Smoking 03/08/2020 12:00:00 AM EDT Never Smoker completed Never S moker eCW1 ([facility]) Alcohol intake 02/06/2020 12:00:00 AM EDT Yes completed [facility] Smoking 02/06/2020 12:00:00 AM EDT Never smoker completed Never [facility] Alcohol intake 01/29/2020 12:00:00 AM EDT Yes completed [facility] Smoking 01/29/2020 12:00:00 AM EDT Never smoker completed Never s [facility] Smoking 10/14/2019 12:00:00 AM EDT Unknown if ever smoked comp leted Unknown if ever smoked [facility] Alcohol intake 09/10/2019 12:00:00 AM EDT Yes completed [facility] Smoking 09/10/2019 12:00:00 AM EDT Never smoker completed Never s [facility] Smoking 07/28/2019 12:00:00 AM EDT Never Smoker completed Never S moker eCW1 ([facility]) Vital Signs ID Date Data Source UNK Name Value Range Interpretation Code Description Data Source(s) Body surface area Derived from formula 2.23 m2 2.23 m2 [facility] ([facility], ) Body weight 134.719 kg 134.719 kg MEDJAC ([facility], ) [place] body weight 105 [lb_av] 105 [lb_av] MEDEN T ([facility], ) Body mass index (BMI) [Ratio] 56.1 kg/m2 56.1 k g/m2 MEDENT ([facility], ) Body weight 297.00 [lb_av] 297.00 [lb_av] MEDEN T ([facility], ) Body height 61 [in_i] 61 [in_i] MEDENT ([facility], ) 5'1" Diastolic blood pressure 72 mm[Hg] 72 mm[Hg] MEDENT ([facility], ) Systolic blood pressure 124 mm[Hg] 124 mm[Hg] M EDENT ([facility], ) Diastolic blood pressure 92 mm[Hg] 92 mm[Hg] eCW1 ([facility]) Systolic blood pressure 136 mm[Hg] 136 mm[Hg] e CW1 ([facility]) Body temperature 97.0 [degF] 97.0 [degF] eCW1 ( [facility]) Respiratory rate 18 /min 18 /min eCW1 ([facility]) Heart rate 98 /min 98 /min eCW1 ([facility]) Body mass index (BMI) [Ratio] 56.83 kg/m2 56.83 kg/m2 W1 ([facility]) Body height 61 [in_i] 61 [in_i] eCW1 ([facility]) Body weight 300.8 [lb_av] 300.8 [lb_av] eCW1 ([facility]) Oxygen saturation in Arterial blood by Pulse oximetry 96 % 96 % [facility] Respiratory rate 16 /min 16 /min [facility] Body temperature 36.83 Fara 36.83 Fara [facility] Heart rate 79 /min 79 /min [facility] Diastolic blood pressure 77 mm[Hg] 77 mm[Hg] [facility] Systolic blood pressure 126 mm[Hg] 126 mm[Hg] [facility] Body mass index (BMI) [Ratio] 56.68 kg/m2 56.68 kg/m2 [facility] Body weight 136.079 kg 136.079 kg [facility] Body height 154.9 cm 154.9 cm [facility] Oxygen saturation in Arterial blood by Pulse oximetry 98 % 98 % [facility] Body mass index (BMI) [Ratio] 56.68 kg/m2 56.68 kg/m2 [facility] Body weight 136.079 kg 136.079 kg [facility] Body height 154.9 cm 154.9 cm [facility] Heart rate 83 /min 83 /min [facility] Diastolic blood pressure 87 mm[Hg] 87 mm[Hg] [facility] Systolic blood pressure 149 mm[Hg] 149 mm[Hg] [facility] Oxygen saturation in Arterial blood by Pulse oximetry 96 % 96 % [facility] Body mass index (BMI) [Ratio] 54.93 kg/m2 54.93 kg/m2 [facility] Body weight 131.861 kg 131.861 kg [facility] Body height 154.9 cm 154.9 cm [facility] Heart rate 72 /min 72 /min [facility] Diastolic blood pressure 77 mm[Hg] 77 mm[Hg] [facility] Systolic blood pressure 124 mm[Hg] 124 mm[Hg] [facility] Body surface area Derived from formula 2.21 m2 2.21 m2 [facility] ([facility], ) Body weight 131.544 kg 131.544 kg [facility] ([facility], ) [place] body weight 105 [lb_av] 105 [lb_av] MEDEN T ([facility], ) Body mass index (BMI) [Ratio] 54.8 kg/m2 54.8 k g/m2 [facility] ([facility], ) Body weight 290.00 [lb_av] 290.00 [lb_av] MEDEN T ([facility], ) Body height 61 [in_i] 61 [in_i] [facility] ([facility], ) 5'1" Heart rate 103 /min 103 /min [facility] ([facility], ) Diastolic blood pressure 88 mm[Hg] 88 mm[Hg] MEDENT ([facility]) Systolic blood pressure 145 mm[Hg] 145 mm[Hg] M EDENT ([facility]) Diastolic blood pressure 84 mm[Hg] 84 mm[Hg] eCW1 ([facility]) Systolic blood pressure 140 mm[Hg] 140 mm[Hg] e CW1 ([facility]) Body temperature 97.5 [degF] 97.5 [degF] eCW1 ( [facility]) Respiratory rate 18 /min 18 /min eCW1 ([facility]) Heart rate 129 /min 129 /min eCW1 ([facility]) Body mass index (BMI) [Ratio] 55.24 kg/m2 55.24 kg/m2 W1 ([facility]) Body height 61 [in_us] 61 [in_us] eCW1 ([facility]) Body weight Measured 292.4 [lb_av] 292.4 [lb_av ] eCW1 ([facility]) Body weight 131.998 kg 131.998 kg MEDENT ([facility], ) Body mass index (BMI) [Ratio] 55.0 kg/m2 55.0 k g/m2 [facility] ([facility]) Body weight 291.00 [lb_av] 291.00 [lb_av] MEDEN T ([facility]) Body height 61 [in_i] 61 [in_i] MEDENT ([facility], ) 5'1" Body weight 133.018 kg 133.018 kg [facility] ([facility]) Body mass index (BMI) [Ratio] 55.4 kg/m2 55.4 k g/m2 [facility] ([facility]) Body weight 293.25 [lb_av] 293.25 [lb_av] MEDEN T ([facility]) Body height 61 [in_i] 61 [in_i] MEDENT ([facility], ) 5'1" Diastolic blood pressure 78 mm[Hg] 78 mm[Hg] [facility] ([facility], ) Systolic blood pressure 144 mm[Hg] 144 mm[Hg] M EDENT ([facility]) Diastolic blood pressure 80 mm[Hg] 80 mm[Hg] eCW1 ([facility]) Systolic blood pressure 124 mm[Hg] 124 mm[Hg] e CW1 ([facility]) Body temperature 97.3 [degF] 97.3 [degF] eCW1 ( [facility]) Respiratory rate 19 /min 19 /min eCW1 ([facility]) Heart rate 120 /min 120 /min eCW1 ([facility]) Body mass index (BMI) [Ratio] 56.00 kg/m2 56.00 kg/m2 W1 ([facility]) Body height 61 [in_us] 61 [in_us] eCW1 ([facility]) Body weight Measured 296.4 [lb_av] 296.4 [lb_av ] W1 ([facility]) Body weight 133.358 kg 133.358 kg [facility] ([facility], ) Body mass index (BMI) [Ratio] 55.5 kg/m2 55.5 k g/m2 MEDENT ([facility], ) Body weight 294.00 [lb_av] 294.00 [lb_av] MEDEN T ([facility], ) Body height 61 [in_i] 61 [in_i] [facility] ([facility], ) 5'1" Diastolic blood pressure 78 mm[Hg] 78 mm[Hg] [facility] ([facility]) Systolic blood pressure 134 mm[Hg] 134 mm[Hg] [facility] ID Date Data Source [id number] 10/15/2019 12:54:14 PM EDT [facility] Name Value Range Interpretation Code Description Data Source(s) WEIGHT RECORDED 290 lb 290 lb [facility] Body height Measured 61 in 61 in [facility] Patient Treatment Plan of Care Planned Activity Planned Date Details Description Data Source (s) meloxicam 15 MG Oral Tablet 09/04/2019 12:00:00 AM EDT [facility] ([facility]) meloxicam 15 MG Oral Tablet 09/04/2019 12:00:00 AM EDT eCW1 ([facility]) Acetaminophen 500 MG Oral Tablet [facility]
[2020-05-25] MEDS ORDERED: LIDOCAINE 2% 100MG/5ML SDV (FOR ANES.) As Ordered ONE (10:14)
[2020-05-25] MEDS ORDERED: propofoL 500 MG/50 ML VIAL As Ordered ONE (10:14)
--- NOTE | 2020-05-25 10:26 | ROOR ---
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 Procedure: Pre-Anesthesia Assessment: - Prior to the procedure, a History and Physical was performed, and patient medications and allergies were reviewed. The patient is competent. The risks and benefits of the procedure and the sedation options and risks were discussed with the patient. All questions were answered and informed consent was obtained. Patient identification and proposed procedure were verified by the physician, the nurse and the anesthesiologist in the procedure room. Mental Status Examination: alert and oriented. Airway Examination: normal oropharyngeal airway and neck mobility. Respiratory Examination: clear to auscultation. CV Examination: normal. Prophylactic Antibiotics: The patient does not require prophylactic antibiotics. Prior Anticoagulants: The patient has taken no previous anticoagulant or antiplatelet agents. ASA Grade Assessment: II - A patient with mild systemic disease. After reviewing the risks and benefits, the patient was deemed in satisfactory condition to undergo the procedure. The anesthesia plan was to use monitored anesthesia care (MAC). Immediately prior to administration of medications, the patient was re-assessed for adequacy to receive sedatives. The heart rate, respiratory rate, oxygen saturations, blood pressure, adequacy of pulmonary ventilation, and response to care were monitored throughout the procedure. The physical status of the patient was re-assessed after the procedure. The Colonoscope was introduced through the anus and advanced to the terminal ileum, with identification of the appendiceal orifice and IC valve. The colonoscopy was performed without difficulty. The patient tolerated the procedure well. The quality of the bowel preparation was good. The terminal ileum, ileocecal valve, appendiceal orifice, and rectum were photographed. Scope insertion time was 3 minutes. Scope withdrawal time was 9 minutes. The total duration of the procedure was 14 minutes. Findings: The perianal and digital rectal examinations were normal. The terminal ileum appeared normal. The ileocecal valve was moderately lipomatous. Four sessile polyps were found in the rectum, sigmoid colon and ascending colon. The polyps were 3 to 4 mm in size. These polyps were removed with a cold snare. Resection and retrieval were complete. Verification of patient identification for the specimen was done by the physician and nurse using the patient's name, date and medical record number. Estimated blood loss was minimal. Multiple small and large-mouthed diverticula were found from sigmoid to descending colon. There was no evidence of diverticular bleeding. Non-bleeding external and internal hemorrhoids were found during retroflexion. The hemorrhoids were small. Impression: - The examined portion of the ileum was normal. - Lipomatous ileocecal valve. - Four 3 to 4 mm polyps in the rectum, in the sigmoid colon and in the ascending colon, removed with a cold snare. Resected and retrieved. - Moderate diverticulosis from sigmoid to descending colon. There was no evidence of diverticular bleeding. - Non-bleeding external and internal hemorrhoids. Recommendation: - Patient has a contact number available for emergencies. The signs and symptoms of potential delayed complications were discussed with the patient. Return to normal activities tomorrow. Written discharge instructions were provided to the patient. - High fiber diet. - Continue present medications. - Use fiber, for example Citrucel, Fibercon, Konsyl or Metamucil. - Await pathology results. - Repeat colonoscopy in 1 year for surveillance based on pathology results. - Telephone GI clinic for pathology results in 2 weeks. - Return to primary care physician. Procedure Code(s): --- Professional --- 92818, Colonoscopy, flexible; with removal of tumor(s), polyp(s), or other lesion(s) by snare technique Diagnosis Code(s): --- Professional --- Z85.038, Personal history of other malignant neoplasm of large intestine Z15.09, Genetic susceptibility to other malignant neoplasm K64.8, Other hemorrhoids K63.89, Other specified diseases of intestine K62.1, Rectal polyp K63.5, Polyp of colon K57.30, Diverticulosis of large intestine without perforation or abscess without bleeding CPT copyright 2019 [employer]. All rights reserved. The codes documented in this report are preliminary and upon pci security consultant review may be revised to meet current compliance requirements. Aleksandr Zuluaga MD Aleksandr Zuluaga MD 05/25/2020 10:26:48 AM Electronically signed by Aleksandr Zuluaga MD Number of Addenda: 0 Note Initiated On: 05/25/2020 9:40 AM Estimated Blood Loss: Estimated blood loss was minimal.
[2020-05-25 10:56] VITALS: BP 144/76
== END 2020-05-25 11:00 | disposition home or self-care (01) ==
LOC: M OPP 08:39
PROVIDERS: ATTEND Internal Medicine Gastroenterology
DX: Z12.11 Encounter for screening for malignant neoplasm of colon (principal); Z85.038 Personal history of other malignant neoplasm of large intestine; Z15.09 Genetic susceptibility to other malignant neoplasm; K63.5 Polyp of colon; K57.30 Diverticulosis of large intestine without perforation or abscess without bleeding; K64.8 Other hemorrhoids; K63.89 Other specified diseases of intestine; E03.9 Hypothyroidism, unspecified; M19.90 Unspecified osteoarthritis, unspecified site; M81.0 Age-related osteoporosis without current pathological fracture; F41.9 Anxiety disorder, unspecified; F32.9 Major depressive disorder, single episode, unspecified; J45.909 Unspecified asthma, uncomplicated; Z85.6 Personal history of leukemia; Z92.21 Personal history of antineoplastic chemotherapy; Z92.3 Personal history of irradiation; Z88.0 Allergy status to penicillin; Z79.899 Other long term (current) drug therapy; Z82.49 Family history of ischemic heart disease and other diseases of the circulatory system

== ENCOUNTER → 2020-12-29 | Outpatient (CLI) | payer OTHER ==
[~2020-12-29] MED LIST changes: +MONT10TA10 PO; -MONT5TAB2 PO; -NS 1,000 ML IV ONE
[2020-12-29 12:11] LABS: BASO % 0.8 % (0.0-1.0); EOS # 0.2 10^3/uL (0.0-0.5); EOS % 4.1 % (0.0-3.0); HEMATOCRIT 40.7 % (36.0-47.0); HEMOGLOBIN 13.1 g/dl (12.0-15.5); LYMPH # 1.7 10^3/uL (1.5-5.0); LYMPH % 33.1 % (24.0-44.0); MEAN CORPUSCULAR HEMOGLOBIN 29.4 pg (27.0-33.0); MEAN CORPUSCULAR HGB CONC 32.2 g/dl (32.0-36.5); MEAN CORPUSCULAR VOLUME 91.3 fl (80.0-96.0); MONO # 0.4 10^3/uL (0.0-0.8); MONO % 7.4 % (2.0-8.0); NEUTROPHILS # 2.8 10^3/uL (1.5-8.5); NEUTROPHILS % 53.8 % (36.0-66.0); PLATELET COUNT, AUTOMATED 188 10^3/uL (150-450); RED BLOOD COUNT 4.46 10^6/uL (4.00-5.40); WHITE BLOOD COUNT 5.1 10^3/uL (4.0-10.0)
[2020-12-29 12:59] LABS: ALBUMIN 3.6 GM/DL (3.2-5.2); BILIRUBIN,TOTAL 0.3 MG/DL (0.2-1.0); CALCIUM LEVEL 8.7 MG/DL (8.5-10.1); CHOLESTEROL RISK RATIO 5.275 (<5); CREATININE FOR GFR 1.09 MG/DL (0.55-1.30); GLOMERULAR FILTRATION RATE 56.8 (>58); POTASSIUM SERUM 4.8 MEQ/L (3.5-5.1); THYROID STIMULATING HORMONE 3.81 uIU/ML (0.358-3.740); TOTAL 25(OH) VITAMIN D 24.8 NG/ML (30.0-100.0); TOTAL PROTEIN 7.2 GM/DL (6.4-8.2)
== END ==
LOC: M WUC 08:46
PROVIDERS: ATTEND Physician Assistant Medical
DX: E03.9 Hypothyroidism, unspecified (principal); E66.01 Morbid (severe) obesity due to excess calories; E55.9 Vitamin D deficiency, unspecified; I10 Essential (primary) hypertension

== ENCOUNTER → 2021-04-01 | Outpatient (CLI) | payer OTHER | LOC: M LABSMTC 11:41 | PROVIDERS: ATTEND Pediatrics | DX: Z20.822 Contact with and (suspected) exposure to COVID-19 (principal) | CPT/HCPCS: C9803; U0003 ==

== ENCOUNTER 2021-04-04 14:29 | Outpatient (CLI) | payer OTHER ==
[~2021-04-04] VITALS: Ht 167.6 cm; Wt 80.0 kg
[~2021-04-04 14:29] MED LIST changes: +ALBUTEROL 90 MCG/ACT 8GM HFA INHALER INH PRN; +ALBUTEROL SULFATE 2.5 MG/0.5 ML INH NEB SOLN INH PRN; +EPINEPHrine INJ 1 MG/ML 1ML AMP IM PRN; +NS 1,000 ML IV SCH; +diphenhydrAMINE 50MG/ML VIAL (J1200) IV PRN; +methylPREDNISolone 125MG 2ML VIAL IV PRN
[2021-04-04] MEDS ORDERED: CASIRIVIMAB (REGN10933) 600 MG, IMDEVIMAB (REGN10987) 600 MG in NS 250 ML IV ONE (15:05)
[2021-04-04 15:10] VITALS: BP 147/84
[2021-04-04 15:40] VITALS: BP 105/58
[2021-04-04 15:59] VITALS: BP 122/63
[2021-04-04 16:10] VITALS: BP 122/63
[2021-04-04 17:10] VITALS: BP 133/70
== END 2021-04-04 17:10 | disposition home or self-care (01) ==
LOC: M OPCLI4PR 14:29
PROVIDERS: ATTEND Family Medicine
DX: U07.1 COVID-19 (principal); Z88.0 Allergy status to penicillin

== ENCOUNTER → 2021-06-23 | Outpatient (CLI) | payer OTHER ==
[~2021-06-23] MED LIST changes: -ALBUTEROL 90 MCG/ACT 8GM HFA INHALER INH PRN; -ALBUTEROL SULFATE 2.5 MG/0.5 ML INH NEB SOLN INH PRN; -EPINEPHrine INJ 1 MG/ML 1ML AMP IM PRN; -MONT10TA10 PO; +MONT10TA97 PO; -NS 1,000 ML IV SCH; -diphenhydrAMINE 50MG/ML VIAL (J1200) IV PRN; -methylPREDNISolone 125MG 2ML VIAL IV PRN
== END ==
LOC: M WHC 10:55
PROVIDERS: ATTEND Physician Assistant Medical
DX: Z12.31 Encounter for screening mammogram for malignant neoplasm of breast (principal)

== ENCOUNTER → 2021-08-01 | Outpatient (CLI) | payer OTHER ==
[~2021-08-01] MED LIST changes: -D31000TA2 PO; +VITA100093 PO
[2021-08-01 12:56] LABS: BASO % 0.9 % (0.0-1.0); EOS # 0.2 10^3/uL (0.0-0.5); EOS % 4.3 % (0.0-3.0); HEMATOCRIT 43.7 % (36.0-47.0); HEMOGLOBIN 13.9 g/dl (12.0-15.5); LYMPH # 1.7 10^3/uL (1.5-5.0); LYMPH % 38.1 % (24.0-44.0); MEAN CORPUSCULAR HGB CONC 31.8 g/dl (32.0-36.5); MEAN CORPUSCULAR VOLUME 91.2 fl (80.0-96.0); MONO # 0.3 10^3/uL (0.0-0.8); MONO % 6.3 % (2.0-8.0); NEUTROPHILS # 2.2 10^3/uL (1.5-8.5); NEUTROPHILS % 50.2 % (36.0-66.0); PLATELET COUNT, AUTOMATED 244 10^3/uL (150-450); RED BLOOD COUNT 4.79 10^6/uL (4.00-5.40); WHITE BLOOD COUNT 4.5 10^3/uL (4.0-10.0)
[2021-08-01 13:57] LABS: ALBUMIN 4.1 GM/DL (3.2-5.2); BILIRUBIN,TOTAL 0.3 MG/DL (0.2-1.0); CALCIUM LEVEL 9.8 MG/DL (8.5-10.1); CHOLESTEROL RISK RATIO 6.56 (<5); CREATININE FOR GFR 1.15 MG/DL (0.55-1.30); GLOMERULAR FILTRATION RATE 53.2 (>51); POTASSIUM SERUM 5.2 MEQ/L (3.5-5.1); THYROID STIMULATING HORMONE 3.43 uIU/ML (0.358-3.740); TOTAL 25(OH) VITAMIN D 31.7 NG/ML (30.0-100.0); TOTAL PROTEIN 7.7 GM/DL (6.4-8.2)
[2021-08-01 14:54] LABS: HEMOGLOBIN A1c 5.1 %
== END ==
LOC: M WUC 09:21
PROVIDERS: ATTEND Physician Assistant Medical
DX: E78.2 Mixed hyperlipidemia (principal); E03.9 Hypothyroidism, unspecified; E55.9 Vitamin D deficiency, unspecified

== ENCOUNTER → 2021-08-18 | Outpatient (CLI) | payer OTHER | LOC: M WUC 09:51 | PROVIDERS: ATTEND Family Medicine | DX: R20.2 Paresthesia of skin (principal); M54.50 Low back pain, unspecified ==

== ENCOUNTER → 2022-02-02 | Outpatient (REF) | payer OTHER ==
[2022-02-02 16:37] LABS: BASO % 0.7 % (0.0-1.0); EOS # 0.2 10^3/uL (0.0-0.5); HEMATOCRIT 42.9 % (36.0-47.0); HEMOGLOBIN 13.7 g/dl (12.0-15.5); LYMPH # 1.9 10^3/uL (1.5-5.0); LYMPH % 31.6 % (24.0-44.0); MEAN CORPUSCULAR HGB CONC 31.9 g/dl (32.0-36.5); MEAN CORPUSCULAR VOLUME 90.7 fl (80.0-96.0); MONO # 0.6 10^3/uL (0.0-0.8); MONO % 9.3 % (2.0-8.0); NEUTROPHILS # 3.3 10^3/uL (1.5-8.5); NEUTROPHILS % 53.7 % (36.0-66.0); PLATELET COUNT, AUTOMATED 286 10^3/uL (150-450); RED BLOOD COUNT 4.73 10^6/uL (4.00-5.40); WHITE BLOOD COUNT 6.1 10^3/uL (4.0-10.0)
[2022-02-02 17:20] LABS: ALBUMIN 3.7 GM/DL (3.2-5.2); BILIRUBIN,TOTAL 0.2 MG/DL (0.2-1.0); CALCIUM LEVEL 9.7 MG/DL (8.5-10.1); CHOLESTEROL RISK RATIO 7.76 (<5); CREATININE FOR GFR 1.13 MG/DL (0.55-1.30); POTASSIUM SERUM 4.4 MEQ/L (3.5-5.1); THYROID STIMULATING HORMONE 3.28 uIU/ML (0.358-3.740); TOTAL PROTEIN 7.4 GM/DL (6.4-8.2)
[2022-02-02 17:49] LABS: TOTAL 25(OH) VITAMIN D 41.7 NG/ML (30.0-100.0)
[2022-02-02 17:50] LABS: HEMOGLOBIN A1c 5.2 %
== END ==
LOC: M SFHCADAM 14:14
PROVIDERS: ATTEND Physician Assistant Medical
DX: E03.9 Hypothyroidism, unspecified (principal); E78.2 Mixed hyperlipidemia; E55.9 Vitamin D deficiency, unspecified

== ENCOUNTER → 2022-02-10 | Outpatient (REF) | payer OTHER | LOC: M SFHCWAGY 17:23 | PROVIDERS: ATTEND Physician Assistant | DX: R30.0 Dysuria (principal) ==

== ENCOUNTER → 2022-08-28 | Outpatient (REF) | payer OTHER ==
[2022-08-28 13:34] LABS: ALBUMIN 3.9 G/DL (3.2-5.2); BILIRUBIN,TOTAL 0.3 MG/DL (0.3-1.2); CALCIUM LEVEL 9.3 MG/DL (8.5-10.1); CHOLESTEROL RISK RATIO 6.44 (<5); CREATININE FOR GFR 1.27 MG/DL (0.55-1.30); GLOMERULAR FILTRATION RATE 47.2 (>51); HDL CHOLESTEROL 36.9 MG/DL (>40); LDL CHOLESTEROL 165.7 MG/DL (<100); NON-HDL-C 201.1 MG/DL; POTASSIUM SERUM 4.3 MMOL/L (3.5-5.1); TOTAL PROTEIN 7.1 G/DL (5.7-8.2)
[2022-08-28 13:38] LABS: THYROID STIMULATING HORMONE 6.6 uIU/ML (0.55-4.78)
[2022-08-28 13:56] LABS: HEMOGLOBIN A1c 5.2 % (4.0-6.0)
== END ==
LOC: M SFHCADAM 10:00
PROVIDERS: ATTEND Physician Assistant Medical
DX: I10 Essential (primary) hypertension (principal); E03.9 Hypothyroidism, unspecified; E66.01 Morbid (severe) obesity due to excess calories; F32.9 Major depressive disorder, single episode, unspecified; E55.9 Vitamin D deficiency, unspecified

== ENCOUNTER → 2023-03-05 | Outpatient (REF) | payer OTHER ==
[2023-03-05 16:38] LABS: BASO % 0.6 % (0.0-1.0); EOS # 0.4 10^3/uL (0.0-0.5); EOS % 7.5 % (0.0-3.0); HEMATOCRIT 42.2 % (36.0-47.0); HEMOGLOBIN 14.2 g/dl (12.0-15.5); LYMPH # 1.7 10^3/uL (1.5-5.0); LYMPH % 35.7 % (24.0-44.0); MEAN CORPUSCULAR HEMOGLOBIN 29.3 pg (27.0-33.0); MEAN CORPUSCULAR HGB CONC 33.6 g/dl (32.0-36.5); MEAN CORPUSCULAR VOLUME 87.2 fl (80.0-96.0); MONO # 0.3 10^3/uL (0.0-0.8); MONO % 5.8 % (2.0-8.0); NEUTROPHILS # 2.4 10^3/uL (1.5-8.5); NEUTROPHILS % 50.2 % (36.0-66.0); PLATELET COUNT, AUTOMATED 219 10^3/uL (150-450); RED BLOOD COUNT 4.84 10^6/uL (4.00-5.40); WHITE BLOOD COUNT 4.7 10^3/uL (4.0-10.0)
[2023-03-05 16:45] LABS: APPEARANCE, URINE CLEAR (CLEAR); BACTERIA, URINE AUTO NEGATIVE (NEGATIVE); BILIRUBIN, URINE AUTO NEGATIVE (NEGATIVE); BLOOD, URINE BLOOD NEGATIVE (NEGATIVE); COLOR, URINE YELLOW (YELLOW); GLUCOSE, URINE (UA) AUTO NEGATIVE (NEGATIVE); KETONE, URINE AUTO NEGATIVE (NEGATIVE); LEUKOCYTE ESTERASE, URINE AUTO 2+ (NEGATIVE); MUCUS, URINE SMALL (NEGATIVE); NITRITE, URINE AUTO NEGATIVE (NEGATIVE); PROTEIN, URINE AUTO NEGATIVE (NEGATIVE); RBC, URINE AUTO 1 /HPF (0-3); SPECIFIC GRAVITY URINE AUTO 1.016 (1.002-1.035); SQUAMOUS EPITHELIAL CELL UR AU 7 /HPF (0-6); UROBILINOGEN, URINE AUTO 0.2 mg/dL (0.0-2.0); WBC, URINE AUTO 6 /HPF (0-3)
[2023-03-05 23:14] LABS: CREATININE, URINE 119.7 MG/DL; MAU/CREAT RATIO 3.3 MCG/MG (0.0-30.0)
[2023-03-06 00:23] LABS: TOTAL 25(OH) VITAMIN D 36.9 NG/ML (20.0-100.0)
[2023-03-06 00:25] LABS: BILIRUBIN,TOTAL 0.4 MG/DL (0.3-1.2); CALCIUM LEVEL 9.3 MG/DL (8.5-10.1); CHOLESTEROL RISK RATIO 5.52 (<5); CREATININE FOR GFR 1.06 MG/DL (0.55-1.30); HDL CHOLESTEROL 39.8 MG/DL (>40); NON-HDL-C 180.2 MG/DL; POTASSIUM SERUM 4.8 MMOL/L (3.5-5.1); THYROID STIMULATING HORMONE 1.505 uIU/ML (0.55-4.78); TOTAL PROTEIN 7.3 G/DL (5.7-8.2)
[2023-03-06 00:41] LABS: HEMOGLOBIN A1c 4.8 % (4.0-6.0)
== END ==
LOC: M SFHCADAM 12:00
PROVIDERS: ATTEND Physician Assistant Medical
DX: I12.9 Hypertensive chronic kidney disease with stage 1 through stage 4 chronic kidney disease, or unspecified chronic kidney disease (principal); E66.01 Morbid (severe) obesity due to excess calories; E03.9 Hypothyroidism, unspecified; E55.9 Vitamin D deficiency, unspecified

== ENCOUNTER → 2023-03-15 | Outpatient (CLI) | payer OTHER | LOC: M WHC 14:33 | PROVIDERS: ATTEND Physician Assistant Medical | DX: N18.31 Chronic kidney disease, stage 3a (principal) ==

== ENCOUNTER → 2023-10-09 | Outpatient (CLI) | payer OTHER | LOC: M WUC 09:48 | PROVIDERS: ATTEND Psychiatry & Neurology Neurology | DX: Z53.9 Procedure and treatment not carried out, unspecified reason (principal) ==

== ENCOUNTER → 2023-10-09 | Outpatient (CLI) | payer OTHER ==
[2023-10-09 12:54] LABS: BASO # 0.1 10^3/uL (0.0-0.2); BASO % 0.9 % (0.0-1.0); EOS # 0.2 10^3/uL (0.0-0.5); HEMATOCRIT 39.8 % (36.0-47.0); HEMOGLOBIN 13.2 g/dl (12.0-15.5); LYMPH # 1.7 10^3/uL (1.5-5.0); LYMPH % 31.5 % (24.0-44.0); MEAN CORPUSCULAR HEMOGLOBIN 29.3 pg (27.0-33.0); MEAN CORPUSCULAR HGB CONC 33.2 g/dl (32.0-36.5); MEAN CORPUSCULAR VOLUME 88.4 fl (80.0-96.0); MONO # 0.3 10^3/uL (0.0-0.8); MONO % 5.1 % (2.0-8.0); NEUTROPHILS # 3.2 10^3/uL (1.5-8.5); NEUTROPHILS % 58.9 % (36.0-66.0); PLATELET COUNT, AUTOMATED 204 10^3/uL (150-450); WHITE BLOOD COUNT 5.3 10^3/uL (4.0-10.0)
[2023-10-09 13:13] LABS: HEMOGLOBIN A1c 5.1 % (4.0-6.0)
[2023-10-09 13:15] LABS: ERYTHROCYTE SEDIMENTATION RATE 27 mm/hr (0-30)
[2023-10-09 13:18] LABS: ALBUMIN 3.7 G/DL (3.2-5.2); BILIRUBIN,TOTAL 0.3 MG/DL (0.3-1.2); CALCIUM LEVEL 9.3 MG/DL (8.5-10.1); CREATININE FOR GFR 1.06 MG/DL (0.55-1.30); POTASSIUM SERUM 4.6 MMOL/L (3.5-5.1); TOTAL PROTEIN 6.9 G/DL (5.7-8.2)
[2023-10-09 13:19] LABS: RHEUMATOID FACTOR QUANT 3.9 IU/ML (<14)
[2023-10-09 13:22] LABS: THYROID STIMULATING HORMONE 5.855 uIU/ML (0.55-4.78)
[2023-10-09 13:29] LABS: FOLATE 6.7 NG/ML (>5.4)
== END ==
LOC: M LAB 10:33
PROVIDERS: ATTEND Psychiatry & Neurology Neurology
DX: R25.9 Unspecified abnormal involuntary movements (principal); G31.84 Mild cognitive impairment of uncertain or unknown etiology

== ENCOUNTER → 2023-10-22 | Outpatient (REF) | payer OTHER | LOC: M SFHCADAM 17:01 | PROVIDERS: ATTEND Physician Assistant Medical | DX: R30.0 Dysuria (principal) ==

== ENCOUNTER → 2023-11-06 | Outpatient (REF) | payer OTHER | LOC: M SFHCCLAY 08:22 | PROVIDERS: ATTEND Physician Assistant | DX: R30.0 Dysuria (principal) ==

== ENCOUNTER 2023-12-03 06:46 | Day surgery (SDC) | payer OTHER ==
[~2023-12-03] VITALS: Ht 154.9 cm; Wt 126.1 kg
[~2023-12-03 06:46] MED LIST changes: +FLUT1BLS4 INH; +FLUTISP; +LORA-1041 PO; +NS 1,000 ML IV ONE
[2023-12-03] MEDS ORDERED: LIDOCAINE 2% 100MG/5ML SDV (FOR ANES.) As Ordered ONE (07:35)
[2023-12-03] MEDS ORDERED: propofoL 200 MG/20 ML VIAL As Ordered ONE (07:35)
[2023-12-03 08:13] VITALS: BP 138/91; TEMP 97.1; O2SAT 97
== END 2023-12-03 08:13 | disposition home or self-care (01) ==
LOC: M OPP 06:46
PROVIDERS: ATTEND Internal Medicine Gastroenterology
DX: Z12.11 Encounter for screening for malignant neoplasm of colon (principal); Z86.010 Personal history of colon polyps; K64.8 Other hemorrhoids; K57.30 Diverticulosis of large intestine without perforation or abscess without bleeding; G47.9 Sleep disorder, unspecified; E03.9 Hypothyroidism, unspecified; Z79.51 Long term (current) use of inhaled steroids; Z79.52 Long term (current) use of systemic steroids; Z79.890 Hormone replacement therapy; Z79.899 Other long term (current) drug therapy; Z88.0 Allergy status to penicillin

== ENCOUNTER → 2024-04-14 | Outpatient (REF) | payer OTHER ==
[~2024-04-14] MED LIST changes: -NS 1,000 ML IV ONE
[2024-04-14 19:22] LABS: C REACTIVE PROTEIN QUANTITATIV 0.6 MG/DL (<1.0)
[2024-04-14 19:24] LABS: ALBUMIN 3.9 G/DL (3.2-5.2); BILIRUBIN,TOTAL 0.3 MG/DL (0.3-1.2); CALCIUM LEVEL 10.2 MG/DL (8.5-10.1); CHOLESTEROL RISK RATIO 6.94 (<5); COMPLEMENT C3 231.1 MG/DL (90.0-170.0); COMPLEMENT C4 57.6 MG/DL (12-36); CREATININE FOR GFR 1.21 MG/DL (0.55-1.30); GLOMERULAR FILTRATION RATE 49.6 (>51); HDL CHOLESTEROL 45.2 MG/DL (>40); NON-HDL-C 268.8 MG/DL; POTASSIUM SERUM 4.3 MMOL/L (3.5-5.1); TOTAL PROTEIN 7.9 G/DL (5.7-8.2)
[2024-04-14 19:25] LABS: FREE T4 0.99 NG/DL (0.89-1.76)
[2024-04-14 19:26] LABS: FOLATE 2.8 NG/ML (>5.4); THYROID STIMULATING HORMONE 6.363 uIU/ML (0.55-4.78); TOTAL 25(OH) VITAMIN D 33.7 NG/ML (20.0-100.0)
[2024-04-14 19:33] LABS: BASO % 0.7 % (0.0-1.0); EOS # 0.3 10^3/uL (0.0-0.5); EOS % 4.7 % (0.0-3.0); HEMATOCRIT 44.7 % (36.0-47.0); HEMOGLOBIN 14.2 g/dl (12.0-15.5); LYMPH % 33.8 % (24.0-44.0); MEAN CORPUSCULAR HEMOGLOBIN 29.3 pg (27.0-33.0); MEAN CORPUSCULAR HGB CONC 31.8 g/dl (32.0-36.5); MEAN CORPUSCULAR VOLUME 92.2 fl (80.0-96.0); MONO # 0.4 10^3/uL (0.0-0.8); MONO % 6.1 % (2.0-8.0); NEUTROPHILS # 3.2 10^3/uL (1.5-8.5); NEUTROPHILS % 54.4 % (36.0-66.0); PLATELET COUNT, AUTOMATED 269 10^3/uL (150-450); RED BLOOD COUNT 4.85 10^6/uL (4.00-5.40); WHITE BLOOD COUNT 5.9 10^3/uL (4.0-10.0)
[2024-04-14 19:44] LABS: ERYTHROCYTE SEDIMENTATION RATE 52 mm/hr (0-30)
[2024-04-15 13:15] LABS: RHEUMATOID FACTOR QUANT 6.2 IU/ML (<14)
== END ==
LOC: M SFHCADAM 13:08
PROVIDERS: ATTEND Physician Assistant Medical
DX: I10 Essential (primary) hypertension (principal); E03.9 Hypothyroidism, unspecified; E55.9 Vitamin D deficiency, unspecified; F32.9 Major depressive disorder, single episode, unspecified; N18.31 Chronic kidney disease, stage 3a; M79.10 Myalgia, unspecified site; M25.50 Pain in unspecified joint

== ENCOUNTER 2024-05-12 10:01 | Day surgery (SDC) | payer OTHER ==
[~2024-05-12] VITALS: Ht 154.9 cm; Wt 125.2 kg
[~2024-05-12 10:01] MED LIST changes: +ACET650T61 PO; -ADV100INH INH; +ADVA1AER8 INH; +BAYE81TA7 PO; +CEFI400C PO; +FOLI1TAB11 PO; +LEVO200T4 PO; +LR 1,000 ML IV SCH; +ROSU5TAB49 PO; +SERT50TA29 PO; +VITA200016 PO
[2024-05-12] MEDS ORDERED: fentaNYL 100 MCG/2 ML INJECTION As Ordered ONE (10:55)
[2024-05-12] MEDS ORDERED: MIDAZOLAM INJ 2MG/2ML VIAL As Ordered ONE (10:55)
[2024-05-12] MEDS: CYCLOPENTOLATE 1% OPHTH SOLN 2ML BTL OS SCH (11:14)
[2024-05-12] MEDS: FLURBIPROFEN 0.03% OPHTH SOLN 2.5 ML OS SCH (11:14)
[2024-05-12] MEDS: PHENYLEPHRINE 2.5% OPHTH SOL 2ML OS SCH (11:14)
[2024-05-12] MEDS: TETRACAINE 0.5% OPHTH SOLN 4ML OS SCH (11:14)
[2024-05-12] MEDS: LIDOCAINE 1% SDV 5ML VIAL As Ordered ONE (12:47)
[2024-05-12] MEDS: MOXIFLOXACIN 0.6MG/0.4ML INTRAOCULAR SYRINGE As Ordered ONE (12:55)
[2024-05-12 13:05] VITALS: BP 148/77; TEMP 96.5; O2SAT 99
== END 2024-05-12 13:27 | disposition home or self-care (01) ==
LOC: M SDC 10:01
PROVIDERS: ATTEND Ophthalmology
DX: H25.12 Age-related nuclear cataract, left eye (principal); H25.012 Cortical age-related cataract, left eye; E03.9 Hypothyroidism, unspecified; K57.92 Diverticulitis of intestine, part unspecified, without perforation or abscess without bleeding; Z85.6 Personal history of leukemia; Z92.21 Personal history of antineoplastic chemotherapy; Z79.82 Long term (current) use of aspirin; J30.2 Other seasonal allergic rhinitis; Z88.0 Allergy status to penicillin; F41.9 Anxiety disorder, unspecified; F32.A Depression, unspecified; Z79.899 Other long term (current) drug therapy
CPT/HCPCS: 66984; J2250; J3010; V2632

== ENCOUNTER 2024-06-02 09:22 | Day surgery (SDC) | payer OTHER ==
[~2024-06-02] VITALS: Ht 154.9 cm; Wt 125.6 kg
[~2024-06-02 09:22] MED LIST changes: +MIDAZOLAM INJ 2MG/2ML VIAL As Ordered ONE; +fentaNYL 100 MCG/2 ML INJECTION As Ordered ONE
[2024-06-02] MEDS: FLURBIPROFEN 0.03% OPHTH SOLN 2.5 ML OD SCH (10:23)
[2024-06-02] MEDS: PHENYLEPHRINE 2.5% OPHTH SOL 2ML OD SCH (10:23)
[2024-06-02] MEDS: CYCLOPENTOLATE 1% OPHTH SOLN 2ML BTL OD SCH (10:23)
[2024-06-02] MEDS: TETRACAINE 0.5% OPHTH SOLN 4ML OD SCH (10:23)
[2024-06-02] MEDS: LIDOCAINE 1% SDV 5ML VIAL As Ordered ONE (11:20)
[2024-06-02] MEDS: CEFUROXIME 1MG/0.1ML INTRACAMERAL INJ As Ordered ONE (11:20)
[2024-06-02 11:59] VITALS: BP 134/78; TEMP 96.9; O2SAT 96
== END 2024-06-02 12:16 | disposition home or self-care (01) ==
LOC: M SDC 09:22
PROVIDERS: ATTEND Ophthalmology
DX: H25.11 Age-related nuclear cataract, right eye (principal); E03.9 Hypothyroidism, unspecified; E78.00 Pure hypercholesterolemia, unspecified; J45.909 Unspecified asthma, uncomplicated; Z79.899 Other long term (current) drug therapy; Z79.890 Hormone replacement therapy; Z79.82 Long term (current) use of aspirin; Z85.6 Personal history of leukemia; Z92.21 Personal history of antineoplastic chemotherapy; F32.A Depression, unspecified; F41.9 Anxiety disorder, unspecified; Z86.011 Personal history of benign neoplasm of the brain; Z90.710 Acquired absence of both cervix and uterus; Z90.49 Acquired absence of other specified parts of digestive tract; Z88.0 Allergy status to penicillin
CPT/HCPCS: 66984; J0697; J2250; J3010; V2632

== ENCOUNTER → 2024-06-10 | Outpatient (REF) | payer OTHER ==
[~2024-06-10] MED LIST changes: -LR 1,000 ML IV SCH; -MIDAZOLAM INJ 2MG/2ML VIAL As Ordered ONE; -fentaNYL 100 MCG/2 ML INJECTION As Ordered ONE
== END ==
LOC: M SFHCADAM 17:14
PROVIDERS: ATTEND Family Medicine
DX: R05.1 Acute cough (principal)

== ENCOUNTER → 2024-08-13 | Outpatient (REF) | payer OTHER ==
[2024-08-13 14:28] LABS: FREE T4 1.35 NG/DL (0.89-1.76)
[2024-08-13 14:29] LABS: THYROID STIMULATING HORMONE 2.984 uIU/ML (0.55-4.78)
== END ==
LOC: M SFHCADAM 09:19
PROVIDERS: ATTEND Physician Assistant Medical
DX: E03.9 Hypothyroidism, unspecified (principal)

== ENCOUNTER → 2024-09-05 | Outpatient (CLI) | payer OTHER ==
[2024-09-05 15:40] LABS: BASO # 0.1 10^3/uL (0.0-0.2); BASO % 0.7 % (0.0-1.0); EOS # 0.2 10^3/uL (0.0-0.5); EOS % 2.8 % (0.0-3.0); HEMATOCRIT 40.2 % (36.0-47.0); HEMOGLOBIN 13.1 g/dl (12.0-15.5); LYMPH # 1.8 10^3/uL (1.5-5.0); MEAN CORPUSCULAR HEMOGLOBIN 28.1 pg (27.0-33.0); MEAN CORPUSCULAR HGB CONC 32.6 g/dl (32.0-36.5); MEAN CORPUSCULAR VOLUME 86.1 fl (80.0-96.0); MONO # 0.4 10^3/uL (0.0-0.8); MONO % 5.7 % (2.0-8.0); NEUTROPHILS # 4.7 10^3/uL (1.5-8.5); NEUTROPHILS % 65.5 % (36.0-66.0); PLATELET COUNT, AUTOMATED 230 10^3/uL (150-450); RED BLOOD COUNT 4.67 10^6/uL (4.00-5.40); WHITE BLOOD COUNT 7.2 10^3/uL (4.0-10.0)
[2024-09-05 15:47] LABS: ERYTHROCYTE SEDIMENTATION RATE 52 mm/hr (0-30)
[2024-09-05 16:01] LABS: ALBUMIN 3.9 G/DL (3.2-5.2); BILIRUBIN,TOTAL 0.2 MG/DL (0.3-1.2); C REACTIVE PROTEIN QUANTITATIV 0.75 MG/DL (<1.0); CALCIUM LEVEL 9.6 MG/DL (8.5-10.1); CREATININE FOR GFR 1.07 MG/DL (0.55-1.30); GLOMERULAR FILTRATION RATE 62.1 (>51); POTASSIUM SERUM 4.6 MMOL/L (3.5-5.1); TOTAL PROTEIN 7.6 G/DL (5.7-8.2)
== END ==
LOC: M PLALAB 14:30
PROVIDERS: ATTEND Physician Assistant Medical
DX: N18.31 Chronic kidney disease, stage 3a (principal); R30.0 Dysuria

== ENCOUNTER → 2024-09-22 | Outpatient (CLI) | payer OTHER | LOC: M PLAIMG 11:30 | PROVIDERS: ATTEND Neurological Surgery | DX: D32.0 Benign neoplasm of cerebral meninges (principal); Z98.890 Other specified postprocedural states; R59.0 Localized enlarged lymph nodes; J32.8 Other chronic sinusitis ==

== ENCOUNTER 2025-02-07 08:57 | Observation (INO) | payer OTHER ==
[~2025-02-07] VITALS: Ht 154.9 cm; Wt 120.0 kg
[~2025-02-07 08:57] MED LIST changes: -FLUTISP; +FLUTISP NARES
[2025-02-07] MEDS ORDERED: ASPIRIN 325 MG TAB PO SCH (09:00)
[2025-02-07 09:51] LABS: APPEARANCE, URINE CLOUDY (CLEAR); BACTERIA, URINE AUTO NEGATIVE (NEGATIVE); BILIRUBIN, URINE AUTO NEGATIVE (NEGATIVE); BLOOD, URINE BLOOD NEGATIVE (NEGATIVE); GLUCOSE, URINE (UA) AUTO NEGATIVE (NEGATIVE); KETONE, URINE AUTO NEGATIVE (NEGATIVE); LEUKOCYTE ESTERASE, URINE AUTO 1+ (NEGATIVE); MUCUS, URINE SMALL (NEGATIVE); NITRITE, URINE AUTO NEGATIVE (NEGATIVE); PROTEIN, URINE AUTO 1+ mg/dL (NEGATIVE); RBC, URINE AUTO 0 /HPF (0-3); SPECIFIC GRAVITY URINE AUTO 1.029 (1.002-1.035); SQUAMOUS EPITHELIAL CELL UR AU 25 /HPF (0-6); UROBILINOGEN, URINE AUTO 0.2 mg/dL (0.0-2.0); WBC, URINE AUTO 5 /HPF (0-3)
[2025-02-07] MEDS ORDERED: ISOVUE-370 76% 100 ML VIAL As Ordered ONE (10:19)
[2025-02-07 10:26] LABS: BASO # 0.0 10^3/uL (0.0-0.2); BASO % 0.6 % (0.0-1.0); EOS # 0.2 10^3/uL (0.0-0.5); EOS % 4.4 % (0.0-3.0); LYMPH # 1.3 10^3/uL (1.5-5.0); LYMPH % 23.9 % (24.0-44.0); MONO # 0.3 10^3/uL (0.0-0.8); MONO % 6.3 % (2.0-8.0); NEUTROPHILS # 3.4 10^3/uL (1.5-8.5); NEUTROPHILS % 64.6 % (36.0-66.0); PLATELET COUNT, AUTOMATED 186 10^3/uL (150-450)
[2025-02-07 10:34] LABS: ERYTHROCYTE SEDIMENTATION RATE 59 mm/hr (0-30)
[2025-02-07 10:38] LABS: INR 1.03
[2025-02-07] MEDS: ACETAMINOPHEN *IV* 1,000 MG in IV 1 EA IV ONE (10:42)
[2025-02-07] MEDS: diphenhydrAMINE 50 MG/ML VIAL IV STA (10:43)
[2025-02-07 10:48] LABS: ALT/SGPT 15.0 U/L (7.0-40); AST/SGOT 14.0 U/L (<34); C REACTIVE PROTEIN QUANTITATIV 1.06 MG/DL (<1.0); CALCIUM LEVEL 9.4 MG/DL (8.5-10.1); CARBON DIOXIDE LEVEL 26.0 MMOL/L (20-31); CHLORIDE LEVEL 101.0 MMOL/L (98-107); CREATININE FOR GFR 1.21 MG/DL (0.55-1.30); GLOMERULAR FILTRATION RATE 53.3 (>51); POTASSIUM SERUM 4.2 MMOL/L (3.5-5.1); SODIUM LEVEL 139.0 MMOL/L (136-145)
[2025-02-07] MEDS: ASPIRIN 81 MG CHEWABLE TABLET PO SCH (14:18)
[2025-02-07] MEDS: ACETAMINOPHEN 325 MG TAB PO PRN (14:19)
[2025-02-07] MEDS ORDERED: METR0.7526 TOP (14:49)
[2025-02-07] MEDS ORDERED: TRIA80CR15 TOP (14:49)
[2025-02-07] MEDS ORDERED: HOME MED LIST COMPLETE! XX SCH (14:50)
[2025-02-07 14:55] LABS: ESTIMATED AVERAGE GLUCOSE 108.0 MG/DL (60-110)
[2025-02-07 15:02] LABS: CHOLESTEROL LEVEL 245.0 MG/DL (<200); CHOLESTEROL RISK RATIO 7.51 (<5); LDL CHOLESTEROL 178.6 MG/DL (<100); NON-HDL-C 212.4 MG/DL; TRIGLYCERIDES LEVEL 169.0 MG/DL (<150)
[2025-02-07] MEDS: NS (Normal Saline) 0.9% 1,000 ML IV SCH (15:04)
[2025-02-07] MEDS: FOLIC ACID 1 MG TAB PO SCH (16:50)
[2025-02-07] MEDS: SERTRALINE HCL 50 MG TAB PO SCH (16:50)
[2025-02-07] MEDS: MONTELUKAST 10 MG TAB PO SCH (16:51)
[2025-02-07] MEDS: LEVOTHYROXINE 100 MCG TABLET (0.1 MG) PO SCH (16:51)
[2025-02-07] MEDS: ENOXAPARIN 40 MG/0.4 ML SYRINGE (J1650 PER 10MG) SC SCH (16:52)
[2025-02-07 17:45] VITALS: BP 113/70; TEMP 97.3; O2SAT 95
[2025-02-07 19:50] VITALS: BP 130/83; TEMP 98; O2SAT 97
[2025-02-07] MEDS: ATORVASTATIN 20 MG TAB PO SCH (20:28)
[2025-02-07] MEDS ORDERED: ATORVASTATIN 20 MG TAB PO SCH (21:00)
[2025-02-07 23:54] VITALS: BP 138/65; TEMP 97.8; O2SAT 94
[2025-02-08 03:53] VITALS: BP 140/79; TEMP 97.3; O2SAT 99
[2025-02-08 08:00] VITALS: BP 126/73; TEMP 97.8; O2SAT 96
[2025-02-08] MEDS: FLUTICASONE PROPIONATE 0.05% NASAL SPRAY 16 GM NARES SCH (09:00)
[2025-02-08 09:52] LABS: PLATELET COUNT, AUTOMATED 166 10^3/uL (150-450)
[2025-02-08 10:03] LABS: CALCIUM LEVEL 8.6 MG/DL (8.5-10.1); CARBON DIOXIDE LEVEL 26.0 MMOL/L (20-31); CHLORIDE LEVEL 102.0 MMOL/L (98-107); CREATININE FOR GFR 1.18 MG/DL (0.55-1.30); GLOMERULAR FILTRATION RATE 54.9 (>51); POTASSIUM SERUM 4.6 MMOL/L (3.5-5.1); SODIUM LEVEL 136.0 MMOL/L (136-145)
[2025-02-08] MEDS ORDERED: ATOR80TA59 PO (10:42)
[2025-02-08] MEDS ORDERED: ASPI81TA26 PO (10:42)
[2025-02-08] MEDS: FLUZONE VACCINE TRI PF(25-26) 0.5ML SYRINGE IM.IMMUN ONE (11:39)
[2025-02-08] MEDS ORDERED: ADVAIR HFA 45/21 MCG INHALER INH SCH (20:00)
== END 2025-02-08 12:27 | disposition home or self-care (01) ==
LOC: M ED 08:57 → M ED INP 08:58 → M MS4PR 17:55
PROVIDERS: ADMIT Internal Medicine; ATTEND Internal Medicine
DX: R29.818 Other symptoms and signs involving the nervous system (principal); R20.2 Paresthesia of skin; R51.9 Headache, unspecified; R50.9 Fever, unspecified; E03.9 Hypothyroidism, unspecified; E55.9 Vitamin D deficiency, unspecified; N18.30 Chronic kidney disease, stage 3 unspecified; Z85.6 Personal history of leukemia; J30.2 Other seasonal allergic rhinitis; R22.1 Localized swelling, mass and lump, neck; Z23 Encounter for immunization; D32.0 Benign neoplasm of cerebral meninges; F32.A Depression, unspecified; J45.909 Unspecified asthma, uncomplicated; Z79.899 Other long term (current) drug therapy; Z79.82 Long term (current) use of aspirin
CPT/HCPCS: 36415; 70450; 70496; 70498; 70544; 70551; 71045; 80047; 80048; 80061; 80076; 81001; 83036; 85025; 85027; 85610; 85652; 85730; 86140; 87040; 87486; 87581; 87633; 87798; 90656; 93005; 93041; 93306; 94760; 96372; 96374; 96375; 97161; 99285; G0008; J0131; J1200; J1650; J2765; Q9967